=== PATIENT | male | born 1965 | race Caucasian/White ===

== ENCOUNTER 2019-05-12 17:43 | Emergency (ER) | payer BC, OTHER ==
[~2019-05-12] VITALS: Ht 180.4 cm; Wt 99.7 kg
[2019-05-12] MEDS ORDERED: NS IV 1000 ML 1,000 ML ONE (18:03)
[2019-05-12] MEDS ORDERED: NS IV 1000 ML 1,000 ML IV ONE (18:07)
[2019-05-12 18:19] LABS: INR 1.1 (0.8-1.4); PROTHROMBIN TIME PATIENT 14.1 SEC (12.2-14.7)
[2019-05-12 18:20] LABS: BASOPHILS % (AUTO) 0 % (0-10); EOSINOPHILS % (AUTO) 0 % (0-10); HEMATOCRIT 40 % (40-54); HEMOGLOBIN 13.3 G/DL (13.3-17.7); LYMPHOCYTES % (AUTO) 16 % (12-44); MEAN CORPUSCULAR HEMOGLOBIN 30 PG (25-34); MEAN CORPUSCULAR HGB CONC 33 G/DL (32-36); MEAN CORPUSCULAR VOLUME 90 FL (80-99); MEAN PLATELET VOLUME 10.4 FL (7.4-10.4); MONOCYTES # (AUTO) 0.4 X 10^3 (0.0-1.0); MONOCYTES % (AUTO) 7 % (0-12); NEUTROPHILS % (AUTO) 77 % (42-75); PLATELET COUNT 256 10^3/uL (130-400); RED CELL DISTRIBUTION WIDTH 13.1 % (10.0-14.5); WHITE BLOOD COUNT 6.5 10^3/uL (4.3-11.0)
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
[2019-05-12] MEDS ORDERED: ONDANSETRON 4 MG/2 ML (SDV) Z0FRAN ONE (18:33)
[2019-05-12 18:36] LABS: ALANINE AMINOTRANSFERASE 24 U/L (0-55); ALBUMIN 4.4 GM/DL (3.2-4.5); ALKALINE PHOSPHATASE 113 U/L (40-136); BILIRUBIN,TOTAL 0.4 MG/DL (0.1-1.0); BUN/CREATININE RATIO 18; CALCIUM 8.6 MG/DL (8.5-10.1); CARBON DIOXIDE 20 MMOL/L (21-32); CHLORIDE 106 MMOL/L (98-107); CREATININE SERUM 0.85 MG/DL (0.60-1.30); GFR ESTIMATED > 60; GLUCOSE 124 MG/DL (70-105); MAGNESIUM 1.9 MG/DL (1.6-2.4); POTASSIUM 4.2 MMOL/L (3.6-5.0); SODIUM 137 MMOL/L (135-145); TOTAL PROTEIN 7.3 GM/DL (6.4-8.2)
[2019-05-12] MEDS ORDERED: ONDANSETRON 4 MG/2 ML (SDV) Z0FRAN IVP ONE (18:45)
[2019-05-12] MEDS ORDERED: CYCLOBENZAPRINE 10 MG (FLEXERIL) TAB PO STA (19:20)
[2019-05-12 19:24] LABS: BILIRUBIN,URINE NEGATIVE (NEGATIVE); CLARITY,URINE CLEAR; COLOR,URINE YELLOW; GLUCOSE, URINE (UA) NEGATIVE (NEGATIVE); KETONES,URINE NEGATIVE (NEGATIVE); LEUKOCYTE ESTERASE ,URINE NEGATIVE (NEGATIVE); NITRITE,URINE NEGATIVE (NEGATIVE); PROTEIN,URINE NEGATIVE (NEGATIVE)
[2019-05-12 19:44] LABS: AMORPHOUS SEDIMENT,UR RARE AMOR URATES /LPF; BACTERIA,URINE TRACE /HPF
[2019-05-12 19:59] LABS: AMPHETAMINE SCREEN, URINE NEGATIVE (NEGATIVE); BARBITURATE SCREEN URINE NEGATIVE (NEGATIVE); BENZODIAZEPINES SCREEN URINE NEGATIVE (NEGATIVE); CANNABINOID SCREEN, URINE NEGATIVE (NEGATIVE); COCAINE SCREEN URINE NEGATIVE (NEGATIVE); METHADONE STAT NEGATIVE (NEGATIVE); METHAMPHETAMINE SCREEN URINE S NEGATIVE (NEGATIVE); OPIATE SCREEN URINE NEGATIVE (NEGATIVE); OXYCODONE STAT NEGATIVE (NEGATIVE); PROPOXYPHENE STAT NEGATIVE (NEGATIVE); TRICYCLIC ANTIDEPRESSANTS SCRE NEGATIVE (NEGATIVE)
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
[2019-05-12] MEDS ORDERED: PRD20T PO (21:36)
[2019-05-12] MEDS ORDERED: CYCL10TA9 PO (21:36)
[2019-05-12 21:39] VITALS: BP 112/75
--- OUTSIDE RECORDS SUMMARY | 2019-05-15 09:31 | XMS REPORT ---
Author Author Bro REYES [facility] Address [address] [place] [address] Care Team Providers Care Mortgage Processing Manager Name Role Phone RAMA REYES Unavailable PROBLEMS Type Condition ICD9-CM Code OQG19-CN Code Onset Dates Condition S tatus SNOMED Code Problem Shortness of breath 786.05 Active 140558828 Problem Unspecified arthropathy, site unspecified 716.90 Active 417438936 Problem Smoking greater than 30 pack years F17.210 Active 00592286 Problem Peptic ulcer, site unspecifi ed, unspecified as acute or chronic, without hemorrhage or perforation K27.9 Active 61 46392 Problem Carpal tunnel syndrome 354.0 Active 44166848 Problem Nondependent tobacco use disorder 305.1 Active 239375935 Problem Epigastric abdominal pain 789.06 Acti ve 94105222 Problem Gastric reflux syndrome K21.9 Active 807349945 ALLERGIES Substance Reaction Event Type Date Status Penicillins rash Non Drug Allergy May, Active ENCOUNTERS Encounter Location Date Diagnosis [place] [id number] [place] [address], S [id number] May, Strep throat J02.0 [place] [id number] [place] [address], [place] [id number] May, [place] [id number] [place] [address], [place] [id number] May, Strep pharyngitis J02.0 and Influenza J1 1.[address], [place] [id number] Aug, Tick bites, initial encounter W57.XXXA ; Fatigue, unspecified type R53.83 and Weakness R53.1 [place] [id number] [place] [address], [place] S [id number] Apr, Follow-up examination Z09 ; Helicobacter pylori (H. pylori) A04.8 ; Tobacco use Z72.0 ; Tobacco abuse counseling Z71.6 and Recurrent left upper quadrant abdominal pain R10.12 [facility] [address], [place] [id number] 12 Mar, 2016 Helicobacter pylori [H. pylori] as the c ause of diseases classified elsewhere B96.81 ; Nausea R11.0 ; Gastric reflux syndrome K21.9 and Smoking greater than 30 pack years F17.210 [facility] [address] [id number] 13 Nov, 2015 Wheezing R06.2 and Bronchiti s J40 [facility] [address], [place] [id number] Aug, [facility] [address], [place] [id number] Aug, [facility] [address], [place] [id number] July, Wellness examination Z00.00 [facility] [address], [place] [id number] July, Gastric reflux K21.9 and Wellness examin ation Z00.00 [facility] [address], [place] [id number] July, [facility] [address], [place] [id number] July, RUQ abdominal pain 789.01 ; Helicobacter pylori (H. pylori) infection 041.86 and Dizziness 780.4 [facility] [address] [place] [id number] [place] [id number] Jun, [facility] [address] [id number] Jun, [facility] [address] [id number] Apr, [facility] [address], [place] [id number] Apr, [facility] [address] [id number] [place], [place] [id number] July, [facility] [address] [facility] [id number] [address] [place] [address] Jun, [facility] [address] [id number] [place], [place] [id number] Jun, [facility] [address] [id number] [place], [place] [id number] Apr, [facility] [address] [id number] [place], [place] [id number] Mar, [facility] [address] [id number] [place], [place] [id number] Mar, [facility] [address] [id number] [place], [place] [id number] Mar, [facility] [address] [id number] [place], [place] [id number] Mar, IMMUNIZATIONS No Known Immunizations SOCIAL HISTORY Never Assessed REASON FOR VISIT Saw Liang about a week ago, finished antibiotic, doesn't feel any better, still h as scratchy throat, bilateral ear pain, having dizzy spells. vicky Sosa PLAN OF CARE Activity Details Follow Up prn Reason: VITAL SIGNS Height 70 in 2018-05-25 Weight 205 lbs 2018-05-25 Temperature 98.9 degrees Fahrenheit 2018-05-25 Heart Rate 76 bpm 2018-05-25 Respiratory Rate 18 2018-05-25 BMI 29.41 kg/m2 2018-05-25 Blood pressure systolic 118 mmHg 2018-05-25 Blood pressure diastolic 74 mmHg 2018-05-25 MEDICATIONS Medication Instructions Dosage Frequency Start Date End Date Duration S tatus Cefdinir 300 MG Orally 2 times a day 1 capsule 12h May, 10 days Active Omeprazole 20 MG Orally Once a day 1 capsule 24h 30 day(s) Active Fish Oil 1000 MG Orally 2 times a day 1 capsule 12h Aug, Active ProAir HFA 108 (90 Base) MCG/ACT Inhalation every 4 hrs 2 puffs as needed 4h 13 Nov, 2015 7 days Active RESULTS Name Result Date Reference Range STREP A (IN HOUSE) STREP A positive Control + Lot # [id number] Exp date 02/23/2021 PROCEDURES Procedure Date Ordered Result Body Site STREP A ASSAY W/OPTIC May 25, 2018 INSTRUCTIONS MEDICATIONS ADMINISTERED No Known Medications MEDICAL (GENERAL) HISTORY Type Description Date Medical History cardiovascular disease--NH in 1999 Surgical History arthroscopy shoulder--Left Surgical History arthroscopic knee surgery--Left 1996
--- OUTSIDE RECORDS SUMMARY | 2019-05-15 09:31 | XMS REPORT ---
Author Author Bro GROVER [facility] Address [address] [place] [address] Care Team Providers Care Tailer In Name Role Phone JACINTO GROVER Unavailable PROBLEMS Type Condition ICD9-CM Code [id number] Code Onset Dates Condition S tatus SNOMED Code Problem Shortness of breath 786.05 Active 090376114 Problem Unspecified arthropathy, site unspecified 716.90 Active 014548951 Problem Smoking greater than 30 pack years F17.210 Active 59801737 Problem Peptic ulcer, site unspecifi ed, unspecified as acute or chronic, without hemorrhage or perforation K27.9 Active 61 12574 Problem Carpal tunnel syndrome 354.0 Active 41337609 Problem Nondependent tobacco use disorder 305.1 Active 860752433 Problem Epigastric abdominal pain 789.06 Acti ve 46729616 Problem Gastric reflux syndrome K21.9 Active 467042775 ALLERGIES Substance Reaction Event Type Date Status Penicillins rash Non Drug Allergy May, Active ENCOUNTERS Encounter Location Date Diagnosis [id number] [place] [address], S [id number] May, Strep throat J02.0 [id number] [place] [address], S [id number] May, [id number] [place] [address] S [id number] May, Strep pharyngitis J02.0 and Influenza J1 1.1 [id number] [place] [address], S [id number] Aug, Tick bites, initial encounter W57.XXXA ; Fatigue, unspecified type R53.83 and Weakness R53.1 [id number] [place] [address], S [id number] Apr, Follow-up examination Z09 ; Helicobacter pylori (H. pylori) A04.8 ; Tobacco use Z72.0 ; Tobacco abuse counseling Z71.6 and Recurrent left upper quadrant abdominal pain R10.12 [facility] [id number] [place] [address], [place] [id number] 12 Mar, 2016 Helicobacter pylori [H. pylori] as the c ause of diseases classified elsewhere B96.81 ; Nausea R11.0 ; Gastric reflux syndrome K21.9 and Smoking greater than 30 pack years F17.210 [facility] WALK IN [facility] [address] [address] Nov, Wheezing R06.2 and Bronchiti s J40 [facility] [address], [place] [id number] Aug, [facility] [address], [place] [id number] Aug, [facility] [address], [place] [id number] July, Wellness examination Z00.00 [facility] [address], [place] [id number] July, Gastric reflux K21.9 and Wellness examin ation Z00.00 [facility] [address], [place] [id number] July, [facility] [address], [place] [id number] July, RUQ abdominal pain 789.01 ; Helicobacter pylori (H. pylori) infection 041.86 and Dizziness 780.4 [facility] [address] [address] Jun, [facility] [address] [address] Jun, [facility] [address] [address] Apr, [facility] [address], [place] [id number] Apr, [facility] [address] [place], [place] [id number] July, [facility] [address] [facility] [id number] [address] [place] [address] Jun, [facility] [place] [address] [id number] [place] [id number] Jun, [facility] [place] [address] [id number] [place] [id number] Apr, [facility] [place] [address] [id number] [place] [id number] Mar, [facility] [address] [id number] [place], [place] [id number] Mar, [facility] [address] [id number] [place] [id number] Mar, [facility] [address] [id number] [place], [place] [id number] Mar, IMMUNIZATIONS No Known Immunizations SOCIAL HISTORY Never Assessed REASON FOR VISIT cough, headache, body aches, fever (101) x 3 days. vicky Sosa PLAN OF CARE Activity Details Follow Up prn Reason: VITAL SIGNS Height 70 in 2018-05-16 Weight 207 lbs 2018-05-16 Temperature 97.2 degrees Fahrenheit 2018-05-16 Heart Rate 72 bpm 2018-05-16 Respiratory Rate 20 2018-05-16 BMI 29.70 kg/m2 2018-05-16 Blood pressure systolic 120 mmHg 2018-05-16 Blood pressure diastolic 64 mmHg 2018-05-16 MEDICATIONS Medication Instructions Dosage Frequency Start Date End Date Duration S tatus ProAir HFA 108 (90 Base) MCG/ACT Inhalation every 4 hrs 2 puffs as needed 4h Nov, 7 days Active Fish Oil 1000 MG Orally 2 times a day 1 capsule 12h Aug, Active Omeprazole 20 MG Orally Once a day 1 capsule 24h 30 day(s) Active Azithromycin 250 MG Orally Once a day 2 tablets on the fi rst day, then 1 tablet daily for 4 days 24h May, 5 day(s) Active RESULTS Name Result Date Reference Range STREP A (IN HOUSE) 2018-05-16 STREP A POSITIVE Control + Lot # [id number] Exp date 02/23 PROCEDURES Procedure Date Ordered Result Body Site STREP A ASSAY W/OPTIC May 16, 2018 INSTRUCTIONS MEDICATIONS ADMINISTERED No Known Medications MEDICAL (GENERAL) HISTORY Type Description Date Medical History cardiovascular disease--[place] in 1999 Surgical History arthroscopy shoulder--Left Surgical History arthroscopic knee surgery--Left 1996
--- OUTSIDE RECORDS SUMMARY | 2019-05-15 09:31 | XMS REPORT ---
Author Author Bro GROVER Organization [facility] Address [address] [place] [address] Care Team Providers Care Pig Iron Loader Name Role Phone JACINTO GROVER Unavailable PROBLEMS Type Condition ICD9-CM Code [id number] Code Onset Dates Condition S tatus SNOMED Code Problem Shortness of breath 786.05 Active 141608195 Problem Unspecified arthropathy, site unspecified 716.90 Active 853523614 Problem Smoking greater than 30 pack years F17.210 Active 71374611 Problem Peptic ulcer, site unspecifi ed, unspecified as acute or chronic, without hemorrhage or perforation K27.9 Active 61 85801 Problem Carpal tunnel syndrome 354.0 Active 50068691 Problem Nondependent tobacco use disorder 305.1 Active 081679103 Problem Epigastric abdominal pain 789.06 Acti ve 48477666 Problem Gastric reflux syndrome K21.9 Active 990251826 ALLERGIES No Information ENCOUNTERS Encounter Location Date Diagnosis [facility] [id number] [place] [address], S [id number] May, Strep throat J02.0 [id number] [place] [address], S [id number] May, [id number] [place] [address], S [id number] May, Strep pharyngitis J02.0 and Influenza J1 1.1 [id number] [place] [address], S [id number] Aug, Tick bites, initial encounter W57.XXXA ; Fatigue, unspecified type R53.83 and Weakness R53.1 [facility] [id number] [place] [address], S [id number] Apr, Follow-up examination Z09 ; Helicobacter pylori (H. pylori) A04.8 ; Tobacco use Z72.0 ; Tobacco abuse counseling Z71.6 and Recurrent left upper quadrant abdominal pain R10.12 [facility] [id number] [place] [address], [place] S [id number] Mar, Helicobacter pylori [H. pylori] as the c ause of diseases classified elsewhere B96.81 ; Nausea R11.0 ; Gastric reflux syndrome K21.9 and Smoking greater than 30 pack years F17.210 [facility] WALK IN [facility] [id number] [place] [address] Nov, Wheezing R06.2 and Bronchiti s J40 [facility] [id number] [place] [address], [place] S [id number] Aug, [facility] [address], [place] [id number] Aug, [facility] [id number] [place] [address], [place] S [id number] July, Wellness examination Z00.00 [facility] [address], [place] [id number] July, Gastric reflux K21.9 and Wellness examin ation Z00.00 [facility] [id number] [place] [address], [place] [id number] July, [facility] [address], [place] [id number] July, RUQ abdominal pain 789.01 ; Helicobacter pylori (H. pylori) infection 041.86 and Dizziness 780.4 [facility] [id number] [place] [phone] Jun, [facility] [id number] [place] [address] Jun, [facility] [address] [address] Apr, [facility] [id number] [place] [address], [place] S [id number] Apr, [facility] [id number] [place] [address], [place] S [id number] July, [facility] [address] [id number] [address] [place] [address] Jun, [facility] [address] [id number] [place] [id number] Jun, [facility] [address] [id number] [place] [id number] Apr, [facility] [address] [id number] [place], [place] [id number] Mar, [facility] [address] [id number] [place] [id number] Mar, [facility] [address] [id number] [place] [id number] Mar, [facility] [address] [id number] [place] [id number] Mar, IMMUNIZATIONS No Known Immunizations SOCIAL HISTORY Never Assessed REASON FOR VISIT PLAN OF CARE VITAL SIGNS Height 70 in 2014-05-01 Weight 200 lbs 2014-05-01 Temperature 97 degrees Fahrenheit 2014-05-01 Heart Rate 70 bpm 2014-05-01 Respiratory Rate 24 2014-05-01 Blood pressure systolic 150 mmHg 2014-05-01 Blood pressure diastolic 90 mmHg 2014-05-01 MEDICATIONS No Known Medications RESULTS No Results PROCEDURES Procedure Date Ordered Result Body Site MEASURE BLOOD OXYGEN LEVEL May 01, 2014 INFLUENZA ASSAY W/OPTIC May 01, 2014 INSTRUCTIONS MEDICATIONS ADMINISTERED No Known Medications MEDICAL (GENERAL) HISTORY Type Description Date Medical History cardiovascular disease--[place] in 1999 Surgical History arthroscopy shoulder--Left Surgical History arthroscopic knee surgery--Left 1996
--- OUTSIDE RECORDS SUMMARY | 2019-05-15 09:32 | XMS REPORT ---
Author Author Bro Omalley Doctor Organization [facility] Address Unknown Phone Unavailable Care Team Providers Care Presales Consultant Name Role Phone Migration, Doctor Unavailable Unavailable PROBLEMS Type Condition ICD9-CM Code [id number] Code Onset Dates Condition S tatus SNOMED Code Problem Shortness of breath 786.05 Active 139047112 Problem Unspecified arthropathy, site unspecified 716.90 Active 738753232 Problem Smoking greater than 30 pack years F17.210 Active 46447711 Problem Peptic ulcer, site unspecifi ed, unspecified as acute or chronic, without hemorrhage or perforation K27.9 Active 61 28889 Problem Carpal tunnel syndrome 354.0 Active 21037496 Problem Nondependent tobacco use disorder 305.1 Active 360142881 Problem Epigastric abdominal pain 789.06 Acti ve 50771853 Problem Gastric reflux syndrome K21.9 Active 285585838 ALLERGIES Substance Reaction Event Type Date Status Penicillins Unknown Non Drug Allergy Jun, Active ENCOUNTERS Encounter Location Date Diagnosis [address] [place] [address], S [id number] May, Strep throat J02.0 [address] [place] [address], S [id number] May, [id number] [place] [address], S [id number] May, Strep pharyngitis J02.0 and Influenza J1 1.1 [facility] [address] [place] [address], [place] [id number] Aug, Tick bites, initial encounter W57.XXXA ; Fatigue, unspecified type R53.83 and Weakness R53.1 [facility] [address] [id number] Apr, Follow-up examination Z09 ; Helicobacter pylori (H. pylori) A04.8 ; Tobacco use Z72.0 ; Tobacco abuse counseling Z71.6 and Recurrent left upper quadrant abdominal pain R10.12 [facility] [id number] [place] [address], [place] S [id number] Mar, Helicobacter pylori [H. pylori] as the c ause of diseases classified elsewhere B96.81 ; Nausea R11.0 ; Gastric reflux syndrome K21.9 and Smoking greater than 30 pack years F17.210 [facility] WALK IN [facility] [address] [facility] [id number] [address] [place] [address] Nov, Wheezing R06.2 and Bronchiti s J40 [facility] [id number] [place] [address], [place] S [id number] Aug, [facility] [address], [place] [id number] Aug, [facility] [id number] [place] [address], [place] S [id number] July, Wellness examination Z00.00 [facility] [address], [place] [id number] July, Gastric reflux K21.9 and Wellness examin ation Z00.00 [facility] [id number] [place] [address], [place] S [id number] July, [facility] [address], [place] [id number] July, RUQ abdominal pain 789.01 ; Helicobacter pylori (H. pylori) infection 041.[address] [facility] [address] [phone] Jun, [facility] [address] [id number] [address] [place] [phone] Jun, [facility] [address] [id number] [place] [address] Apr, [facility] [id number] [place] [address], [place] S [id number] Apr, [facility] [id number] [place] [address], [place] S [id number] July, [facility] [address] [facility] [id number] [address] [place] [address] Jun, [facility] [address] [id number] [place] [id number] Jun, [facility] [address] [id number] [place], [place] [id number] Apr, [facility] [address] [id number] [place], [place] [id number] Mar, [facility] [address] [id number] [place], [place] [id number] Mar, [facility] [address] [id number] [place], [place] [id number] Mar, [facility] [address] [id number] [place], [place] [id number] Mar, IMMUNIZATIONS No Known Immunizations SOCIAL HISTORY Never Assessed REASON FOR VISIT EMR-[facility] PLAN OF CARE VITAL SIGNS MEDICATIONS Medication Instructions Dosage Frequency Start Date End Date Duration S tatus Clindamycin HCl 300 mg 1 capsule by Oral route 3 times per day for 5 day(s) Mar, Active Albuterol Sulfate 90 mcg/actuation inhal e 1 puff by Inhalation route as needed every 4-6 hours PRN SOB, wheezing Apr, Active Azithromycin 250 mg bryanna 2 Tablet by Oral route on day 1 then take 1 daily for 4 days Apr, Active Tamiflu 75 mg 1 capsule by Oral ro [place] 2 times per day for 5 day(s) Treatment Dosing Apr, Active Ranitidine HCl 150 mg take 1 tablet (150 mg) by oral r oute 4 times per day Apr, Active Benzonatate 100 mg 1 capsule 3 times per day PRN Apr, Active RESULTS No Results PROCEDURES No Known procedures INSTRUCTIONS MEDICATIONS ADMINISTERED No Known Medications MEDICAL (GENERAL) HISTORY Type Description Date Medical History cardiovascular disease--[place] in 1999 Surgical History arthroscopy shoulder--Left Surgical History arthroscopic knee surgery--Left 1996
--- OUTSIDE RECORDS SUMMARY | 2019-05-15 09:32 | XMS REPORT ---
Author Author Bro MCDONALD Y Organization [facility] Address [address] [place] [address] Care Team Providers Care Horse Exerciser Name Role Phone SWAN DEANDRE DAVID Unavailable PROBLEMS Type Condition ICD9-CM Code GOB31-BC Code Onset Dates Condition S tatus SNOMED Code Problem Unspecified arthropathy, site unspecified 716.90 Active 200732530 Problem Shortness of breath 786.05 Active 315532703 Problem Peptic ulcer, site unspecifi ed, unspecified as acute or chronic, without hemorrhage or perforation K27.9 Active 61 05968 Problem Smoking greater than 30 pack years F17.210 Active 89554285 Problem Nondependent tobacco use disorder 305.1 Active 414225073 Problem Carpal tunnel syndrome 354.0 Active 05148678 Problem Gastric reflux syndrome K21.9 Active 529722237 Problem Epigastric abdominal pain 789.06 Acti ve 89000853 ALLERGIES Substance Reaction Event Type Date Status Penicillins rash Non Drug Allergy Apr, Active SOCIAL HISTORY No smoking Hx information available PLAN OF CARE Activity Details Follow Up 1 week Reason: VITAL SIGNS Height 70 in 2016-04-07 Weight 190.0 lbs 2016-04-07 Temperature 97 degrees Fahrenheit 2016-04-07 Heart Rate 80 bpm 2016-04-07 Respiratory Rate 16 2016-04-07 BMI 27.26 kg/m2 2016-04-07 Blood pressure systolic 126 mmHg 2016-04-07 Blood pressure diastolic 70 mmHg 2016-04-07 MEDICATIONS Medication Instructions Dosage Frequency Start Date End Date Duration S tatus Wellbutrin XL 150 MG Orally Once a day for 7 days , thenSTOP SMOKING and start taking twice a day. 1 tablet in the morning Apr, 3 0 day(s) Active Fish Oil 1000 MG Orally 2 times a day 1 capsule 12h Aug, Active Ranitidine HCl 150 MG Orally 3 times a day 1 tablet at bedtime 8h Active ProAir HFA 108 (90 Base) MCG/ACT Inhalation every 4 hrs 2 puffs as needed 4h 13 Nov, 2015 7 days Active RESULTS Name Result Date Reference Range Ultrasound : Abdominal, COMPLETE 2016-04-25 PROCEDURES Procedure Date Ordered Related Diagnosis Body Site Office Visit, Est Pt., Level 3 Apr 07, 2016 IMMUNIZATIONS No Known Immunizations
--- OUTSIDE RECORDS SUMMARY | 2019-05-15 09:32 | XMS REPORT ---
Author Author Bro MCDONALD Y Organization [facility] Address [address] [place] [address] Care Team Providers Care Oncology Coordinator Name Role Phone SOSA HENSONMICHAELDAVID Unavailable PROBLEMS Type Condition ICD9-CM Code DOX87-CL Code Onset Dates Condition S tatus SNOMED Code Problem Unspecified arthropathy, site unspecified 716.90 Active 916021768 Problem Shortness of breath 786.05 Active 820080582 Problem Peptic ulcer, site unspecifi ed, unspecified as acute or chronic, without hemorrhage or perforation K27.9 Active 61 30176 Problem Smoking greater than 30 pack years F17.210 Active 64887426 Problem Nondependent tobacco use disorder 305.1 Active 610394195 Problem Carpal tunnel syndrome 354.0 Active 46587819 Problem Gastric reflux syndrome K21.9 Active 147251880 Problem Epigastric abdominal pain 789.06 Acti ve 83552047 ALLERGIES Substance Reaction Event Type Date Status Penicillins rash Non Drug Allergy Aug, Active ENCOUNTERS Encounter Location Date Diagnosis [address] [id number] Aug, Tick bites, initial encounter W57.XXXA ; Fatigue, unspecified type R53.83 and Weakness R53.1 [address] S [id number] Apr, Follow-up examination Z09 ; Helicobacter pylori (H. pylori) A04.8 ; Tobacco use Z72.0 ; Tobacco abuse counseling Z71.6 and Recurrent left upper quadrant abdominal pain R10.12 [address] S [id number] Mar, Helicobacter pylori [H. pylori] as the c ause of diseases classified elsewhere B96.81 ; Nausea R11.0 ; Gastric reflux syndrome K21.9 and Smoking greater than 30 pack years F17.210 [facility] [address] [facility] [id number] [address] [place] [address] Nov, Wheezing R06.2 and Bronchiti s J40 [facility] [address] [id number] [place] [id number] Aug, [facility] [address] [id number] [place], [place] [id number] Aug, [facility] [address] [id number] [place], [place] [id number] July, Wellness examination Z00.00 [facility] [id number] [place] [address], [place] S [id number] July, Gastric reflux K21.9 and Wellness examin ation Z00.00 [facility] [id number] [place] [address], [place] S [id number] July, [facility] [id number] [place] [address], [place] S [id number] July, RUQ abdominal pain 789.01 ; Helicobacter pylori (H. pylori) infection 041.86 and Dizziness 780.4 [facility] [address] [id number] [address] [place] [phone] Jun, [facility] [address] [id number] [address] [place] [phone] Jun, [facility] [address] [id number] [address] [place] [phone] Apr, [facility] [id number] [place] [address], [place] S [id number] Apr, [facility] [id number] [place] [address], [place] S [id number] July, [facility] [address] [id number] [address] [place] [phone] Jun, [facility] [address] [facility] [id number] [place], [place] [id number] Jun, [facility] [address], [place] [id number] Apr, [facility] [address] [id number] [place] S [id number] Mar, [facility] [address] [id number] [place] S [id number] Mar, [facility] [address] [id number] [place] S [id number] Mar, [facility] [address] [id number] Cony [place] S [id number] Mar, IMMUNIZATIONS No Known Immunizations SOCIAL HISTORY Never Assessed REASON FOR VISIT pulled about 8 ticks offf of him about a week ago. Pt c/o dizziness, fatigu e, body aches . Tanner KHALIL PLAN OF CARE Activity Details Follow Up 4 Weeks Reason: VITAL SIGNS Height 70 in 2016-09-02 Weight 184.0 lbs 2016-09-02 Temperature 98.4 degrees Fahrenheit 2016-09-02 Heart Rate 82 bpm 2016-09-02 Respiratory Rate 16 2016-09-02 BMI 26.40 kg/m2 2016-09-02 Blood pressure systolic 120 mmHg 2016-09-02 Blood pressure diastolic 68 mmHg 2016-09-02 MEDICATIONS Medication Instructions Dosage Frequency Start Date End Date Duration S wilian Doxycycline Hyclate 100 mg Orally every 12 hrs 1 tablet 12h Aug, Sep, 30 days Active Ranitidine HCl 150 MG Orally 3 times a day 1 tablet at bedtime 8h Active RESULTS No Results PROCEDURES No Known procedures INSTRUCTIONS MEDICATIONS ADMINISTERED No Known Medications MEDICAL (GENERAL) HISTORY Type Description Date Medical History cardiovascular disease--[place] in 1999 Surgical History arthroscopy shoulder--Left Surgical History arthroscopic knee surgery--Left 1996
--- OUTSIDE RECORDS SUMMARY | 2019-05-15 09:32 | XMS REPORT ---
Author Author Bro MCDONALD Y Organization [facility] Address [address] [place] [address] Care Team Providers Care Wafer Polishing Worker Name Role Phone SWAN DEANDRE DAVID Unavailable PROBLEMS Type Condition ICD9-CM Code [id number] Code Onset Dates Condition S tatus SNOMED Code Problem Unspecified arthropathy, site unspecified 716.90 Active 483406355 Problem Shortness of breath 786.05 Active 598002833 Problem Peptic ulcer, site unspecifi ed, unspecified as acute or chronic, without hemorrhage or perforation K27.9 Active 61 99856 Problem Smoking greater than 30 pack years F17.210 Active 28713068 Problem Nondependent tobacco use disorder 305.1 Active 227169179 Problem Carpal tunnel syndrome 354.0 Active 51111997 Problem Gastric reflux syndrome K21.9 Active 644182610 Problem Epigastric abdominal pain 789.06 Acti ve 91194344 ALLERGIES Substance Reaction Event Type Date Status Penicillins rash Non Drug Allergy Mar, Active SOCIAL HISTORY No smoking Hx information available PLAN OF CARE Activity Details Follow Up 3 Weeks Reason: VITAL SIGNS Height 70 in 2016-03-17 Weight 194.6 lbs 2016-03-17 Temperature 97.0 degrees Fahrenheit 2016-03-17 Heart Rate 72 bpm 2016-03-17 Respiratory Rate 18 2016-03-17 BMI 27.92 kg/m2 2016-03-17 Blood pressure systolic 128 mmHg 2016-03-17 Blood pressure diastolic 78 mmHg 2016-03-17 MEDICATIONS Medication Instructions Dosage Frequency Start Date End Date Duration S tatus Fish Oil 1000 MG Orally 2 times a day 1 capsule 12h Aug, Active Cipro 500 MG Orally Twice a day 1 tablet 12h Mar, Ja n, 2016 10 day(s) Active Ranitidine HCl 150 MG Orally 3 times a day 1 tablet at bedtime 8h Active Flagyl 500 MG Orally every 8 hrs 1 tablet 8h 12 Pavan, 2017 22 J an, 2017 10 day(s) Active ProAir HFA 108 (90 Base) MCG/ACT Inhalation every 4 hrs 2 puffs as needed 4h 13 Nov, 2015 7 days Active RESULTS No Results PROCEDURES Procedure Date Ordered Related Diagnosis Body Site Office Visit, Est Pt., Level 3 Mar 17, 2016 IMMUNIZATIONS No Known Immunizations
--- OUTSIDE RECORDS SUMMARY | 2019-05-15 09:32 | XMS REPORT ---
Author Author Bro SMITH Organization [facility] Address [address] [place] [address] Care Team Providers Care Crossing Tender Name Role Phone SARAH GLORIA Unavailable PROBLEMS Type Condition ICD9-CM Code EXP07-GV Code Onset Dates Condition S tatus SNOMED Code Assessment Wheezing R06.2 Nov, Active 172372 04 Assessment Bronchitis J40 Nov, Active 11794 004 Problem Gastric reflux K21.9 Active 03045 7003 Problem Epigastric abdominal pain 789.06 Acti ve 31928007 Problem Shortness of breath 786.05 Active 310343905 Problem Unspecified arthropathy, site unspecified 716.90 Active 204039115 Problem Carpal tunnel syndrome 354.0 Active 42564820 Problem Nondependent tobacco use disorder 305.1 Active 576318585 ALLERGIES Substance Reaction Event Type Date Status Penicillins rash Non Drug Allergy Nov, Active SOCIAL HISTORY No smoking Hx information available PLAN OF CARE VITAL SIGNS Height 70 in 2015-11-17 Weight 186.6 lbs 2015-11-17 Heart Rate 76 bpm 2015-11-17 Respiratory Rate 22 2015-11-17 Oximetry after breathing tx:98 % 2015-11-17 BMI 26.77 kg/m2 2015-11-17 Blood pressure systolic 108 mmHg 2015-11-17 Blood pressure diastolic 74 mmHg 2015-11-17 MEDICATIONS Medication Instructions Dosage Frequency Start Date End Date Duration S tatus Fish Oil 1000 MG Orally 2 times a day 1 capsule 12h Aug, Active Omeprazole 20 mg Orally twice a day 1 capsules 12h July, Active ProAir HFA 108 (90 Base) MCG/ACT Inhalation every 4 hrs 2 puffs as needed 4h Nov, 7 days Active Azithromycin 250 MG Orally Once a day 2 tablets on the fi rst day, then 1 tablet daily for 4 days 24h Nov, Nov, 5 day(s) Active RESULTS No Results PROCEDURES Procedure Date Ordered Related Diagnosis Body Site ALBUTEROL UNIT DOSE FORM INHALED 2015-11-17 N/A MEASURE BLOOD OXYGEN LEVEL Nov 17, 2015 Office Visit, Est Pt., Level 3 Nov 17, 2015 ALBUTEROL INHAL UNIT DOSE 1 MG Nov 17, 2015 IMMUNIZATIONS No Known Immunizations
--- OUTSIDE RECORDS SUMMARY | 2019-05-15 09:32 | XMS REPORT ---
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 Name Role Phone Migration, Doctor Unavailable Unavailable PROBLEMS Type Condition ICD9-CM Code HXM31-XA Code Onset Dates Condition S tatus SNOMED Code Problem Shortness of breath 786.05 Active 832533866 Problem Unspecified arthropathy, site unspecified 716.90 Active 827795806 Problem Smoking greater than 30 pack years F17.210 Active 42458920 Problem Peptic ulcer, site unspecifi ed, unspecified as acute or chronic, without hemorrhage or perforation K27.9 Active 61 80891 Problem Carpal tunnel syndrome 354.0 Active 58110893 Problem Nondependent tobacco use disorder 305.1 Active 160595821 Problem Epigastric abdominal pain 789.06 Acti ve 88928518 Problem Gastric reflux syndrome K21.9 Active 024741099 ALLERGIES No Information ENCOUNTERS Encounter Location Date Diagnosis [place] [id number] [place] [address], S [id number] May, Strep throat J02.[address] [place] [id number] [place] [address], S [id number] May, [place] [id number] [place] [address], S [id number] May, Strep pharyngitis J02.0 and Influenza J1 1.[address] [place] [id number] [place] [address], S [id number] Aug, Tick bites, initial encounter W57.XXXA ; Fatigue, unspecified type R53.83 and Weakness R53.[address] [place] [id number] [place] [address], S [id number] 02 Apr, 2016 Follow-up examination Z09 ; Helicobacter pylori (H. pylori) A04.8 ; Tobacco use Z72.0 ; Tobacco abuse counseling Z71.6 and Recurrent left upper quadrant abdominal pain R10.12 [place] [id number] [place] [address], [place] S [id number] Mar, Helicobacter pylori [H. pylori] as the c ause of diseases classified elsewhere B96.81 ; Nausea R11.0 ; Gastric reflux syndrome K21.9 and Smoking greater than 30 pack years F17.210 [facility] [id number] [place] [phone] Nov, Wheezing R06.2 and Bronchiti s J40 [facility] [id number] [place] [address], [place] S [id number] Aug, [facility] [id number] [place] [address], [place] S [id number] Aug, [facility] [address], [place] [id number] July, Wellness examination Z00.00 [facility] [address], [place] [id number] July, Gastric reflux K21.9 and Wellness examin ation Z00.00 [facility] [id number] [place] [address], [place] S [id number] July, [facility] [id number] [place] [address], [place] S [id number] July, RUQ abdominal pain 789.01 ; Helicobacter pylori (H. pylori) infection 041.86 and Dizziness 780.4 [facility] [address] [id number] Jun, [facility] [id number] [place] [phone] Jun, [facility] [id number] [place] [phone] Apr, [facility] [id number] [place] [address], [place] S [id number] Apr, [facility] [id number] [place] [address], [place] S [id number] July, [facility] [address] [phone] Jun, [facility] [address] [id number] [place] [id number] Jun, [facility] [address] [id number] [place], [place] [id number] Apr, [facility] [address] [id number] [place], [place] [id number] Mar, [facility] [address] [facility] [id number] [place], [place] [id number] Mar, [facility] [address] [facility] [id number] [place], [place] [id number] Mar, [facility] [address] [facility] [id number] [place], S [id number] Mar, IMMUNIZATIONS No Known Immunizations SOCIAL HISTORY Never Assessed REASON FOR VISIT EMR-[facility] PLAN OF CARE VITAL SIGNS MEDICATIONS No Known Medications RESULTS No Results PROCEDURES No Known procedures INSTRUCTIONS MEDICATIONS ADMINISTERED No Known Medications MEDICAL (GENERAL) HISTORY Type Description Date Medical History cardiovascular disease--[place] in 1999 Surgical History arthroscopy shoulder--Left Surgical History arthroscopic knee surgery--Left 1996
== END 2019-05-12 21:45 | disposition home or self-care (01) ==
LOC: EDUNIT# 17:43 → ER 17:44
DX: R07.89 Other chest pain (principal); J20.9 Acute bronchitis, unspecified; I10 Essential (primary) hypertension; I25.2 Old myocardial infarction; R40.2142 Coma scale, eyes open, spontaneous, at arrival to emergency department; R40.2252 Coma scale, best verbal response, oriented, at arrival to emergency department; R40.2362 Coma scale, best motor response, obeys commands, at arrival to emergency department; Z95.5 Presence of coronary angioplasty implant and graft; Z88.0 Allergy status to penicillin; Z87.891 Personal history of nicotine dependence; Z87.09 Personal history of other diseases of the respiratory system; V47.5XXA Car driver injured in collision with fixed or stationary object in traffic accident, initial encounter; Y92.410 Unspecified street and highway as the place of occurrence of the external cause
CPT/HCPCS: 36415; 70450; 71045; 72125; 72170; 80053; 80306; 80320; 81000; 83735; 83874; 84484; 85025; 85610; 85730; 93005; 93041

== ENCOUNTER → 2019-06-25 | Outpatient (CLI) | payer SELFPAY ==
[~2019-06-25] MED LIST: CATHETER FLUSH 10 ML SYR IV PRN; CYCL10TA9 PO; HOLD METFORMIN - RECEIVED CONTRAST 20 ML VIAL IV SCH; IOHEXOL 350 MG/ML 100 ML (OMNIPAQUE 350) VIAL IV ONE; NS 100 ML (IVPB) BAG IV ONE; PRD20T PO
[2019-06-25 14:21] LABS: ABG BASE EXCESS 0.2 MMOL/L (-2.5-2.5); ABG OXYGEN SATURATION 96 % (94-100); ABG PCO2 42 MMHG (35-45); ABG PH 7.39 (7.37-7.43); ABG PO2 91 MMHG (79-93)
[2019-06-25 14:23] LABS: CREATININE SERUM 0.97 MG/DL (0.60-1.30); GFR ESTIMATED > 60
[2019-06-25 14:23] LABS: ALLENS TEST POSITIVE; PATIENT TEMP 36.7; VENTILATOR NO
[2019-06-25 14:24] LABS: BUN/CREATININE RATIO 13
--- NOTE | 2019-06-25 15:18 | Diagnostic Imaging Report ---
PROCEDURE: CT angiography Chest. TECHNIQUE: After intravenous administration of contrast, thin section axial CT angiography of the chest was performed. 3D MIP reconstructions were made. All CT scans use one or more of the following dose optimizing techniques: automated exposure control, MA and/or KvP adjustment based on a patient size and exam type, or iterative reconstruction. INDICATION: Dyspnea. COMPARISON: Chest radiograph of 05/12/2019. FINDINGS: Vasculature: No pulmonary emboli. No CT evidence of pulmonary hypertension or right ventricular strain. Thoracic aorta is normal in caliber. No aortic dissection or pseudoaneurysm. 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 Heart and mediastinum: Visualized thyroid is normal. No supraclavicular, axillary, or intra-thoracic lymphadenopathy. Mild cardiomegaly. No pericardial effusion. Coronary artery calcifications are present and greatest in the posterior descending and anterior descending arteries. Pleura: No pleural effusion or pneumothorax. Lungs and airway: No endoluminal lesion in the trachea or central bronchi. No pulmonary mass, nodule, or consolidation. Upper abdomen: Visualized aspects of the upper abdomen are normal. Musculoskeletal: No concerning osseous lesion. IMPRESSION: 1. No acute cardiopulmonary process. Specifically, no pulmonary emboli or acute aortic syndrome. 2. No pulmonary nodule. The abnormality seen on chest radiograph is due to summation shadow of the right first rib. Dictated by: Dictated on workstation # [id number]
== END ==
LOC: RAD 13:54
PROVIDERS: ATTEND Nurse Practitioner Family
DX: R91.8 Other nonspecific abnormal finding of lung field (principal); R04.2 Hemoptysis; R06.00 Dyspnea, unspecified; E66.9 Obesity, unspecified; J98.4 Other disorders of lung; F17.211 Nicotine dependence, cigarettes, in remission
CPT/HCPCS: 36415; 36600; 71275; 82565; 82805; 84520

== ENCOUNTER → 2019-10-21 | Outpatient (CLI) | payer MEDICAID, OTHER ==
[2019-10-21 08:57] LABS: BUN/CREATININE RATIO 21; GFR ESTIMATED > 60
--- NOTE | 2019-10-21 09:38 | Diagnostic Imaging Report ---
PROCEDURE: CT chest with contrast only. TECHNIQUE: Multiple contiguous axial images were obtained through the chest after administration of intravenous contrast. Auto Exposure Controls were utilized during the CT exam to meet ALARA standards for radiation dose reduction. INDICATION: Shortness of air with chest pressure, cough. Compared with chest CT 06/25/2019. FINDINGS: There is no acute infiltrate. Zones of subsegmental atelectasis and a small linear scar in the superior segment right lower lobe similar to the comparison. No effusion or pneumothorax. No suspicious mass or lymphadenopathy. There are coronary arterial atherosclerotic vascular calcifications. There is incidental aberrant course of the right subclavian artery passing retroesophageal. No thoracic aneurysm. No acute-appearing chest wall pathology. The visualized upper abdomen appeared nonacute. IMPRESSION: No acute-appearing abnormality or interval change. Dictated by: Dictated on workstation # [id number]
== END ==
LOC: RAD 08:30
PROVIDERS: ATTEND Nurse Practitioner Family
DX: J98.4 Other disorders of lung (principal); R04.2 Hemoptysis; R06.02 Shortness of breath; R07.89 Other chest pain; F17.211 Nicotine dependence, cigarettes, in remission
CPT/HCPCS: 36415; 71260; 82565; 84520

== ENCOUNTER → 2019-10-31 | Outpatient (CLI) | payer MEDICAID, OTHER ==
[~2019-10-31] MED LIST changes: -CATHETER FLUSH 10 ML SYR IV PRN; -HOLD METFORMIN - RECEIVED CONTRAST 20 ML VIAL IV SCH; -IOHEXOL 350 MG/ML 100 ML (OMNIPAQUE 350) VIAL IV ONE; -NS 100 ML (IVPB) BAG IV ONE
[2019-10-31] MEDS: RT-ALBUTEROL SULF 2.5 MG/3 ML PRE-MIX VIAL INH ONE (10:54)
== END ==
LOC: RT 09:45
PROVIDERS: ATTEND Nurse Practitioner Family
DX: J98.4 Other disorders of lung (principal); R06.00 Dyspnea, unspecified; E66.9 Obesity, unspecified; F17.211 Nicotine dependence, cigarettes, in remission
CPT/HCPCS: 94060; 94726; 94729

== ENCOUNTER → 2021-10-06 | Outpatient (CLI) | payer MEDICAID, MEDICARE ==
[~2021-10-06] MED LIST changes: +CYCL10TA25 PO; -CYCL10TA9 PO
== END ==
LOC: CARD 09:14
PROVIDERS: ATTEND Internal Medicine Cardiovascular Disease
DX: I25.118 Atherosclerotic heart disease of native coronary artery with other forms of angina pectoris (principal); I25.10 Atherosclerotic heart disease of native coronary artery without angina pectoris; I35.0 Nonrheumatic aortic (valve) stenosis
CPT/HCPCS: 93306

== ENCOUNTER → 2021-10-14 | Outpatient (CLI) | payer MEDICAID ==
[~2021-10-14] VITALS: Ht 180 cm; Wt 100.0 kg
[2021-10-14] MEDS: CATHETER FLUSH 10 ML SYR IVP PRN (07:23)
[2021-10-14 08:49] VITALS: BP 135/78
--- NOTE | 2021-10-15 13:08 | NUCLEAR STRESS TEST ---
TREADMILL NUCLEAR STRESS TEST Date of procedure: 10/14/2021. Primary care provider: JANA Ribeiro. Admitting physician: Boris Diaz Jr., MD. INDICATION: Coronary artery disease of [place] vessel with angina pectoris. BASELINE ELECTROCARDIOGRAM: Sinus rhythm, unremarkable tracing. STRESS TEST PROCEDURE: The patient was exercised for a total of 6 minutes and 50 seconds of the standard Aidan protocol achieving a maximum MET level of 7.1. The resting heart rate was 65 bpm and the peak heart rate was 145 bpm, which represents 86% of the maximum predicted heart rate. The resting blood pressure was 135/78 mmHg and the peak blood pressure was 182/88 mmHg. This represents a normal heart rate and a normal blood pressure response to exercise. The test was stopped due to target heart rate attained. There was no chest discomfort during the test. There were no arrhythmias during the test. There were no significant stress induced electrocardiogram changes. The patient exhibited good exercise capacity for age. NUCLEAR PROCEDURE: The patient was administered 10.9 mCi of intravenous technetium 99m Tetrofosmin at rest for the rest images. The patient was subsequently administered 31 mCi of intravenous technetium 99 M Tetrofosmin at peak stress for the stress images. Following an appropriate wait after each injection, imaging was obtained. The images were subsequently processed and reformatted in the usual views. Gated imaging was obtained. The image quality was adequate with a moderate degree of gastrointestinal attenuation artifact. CT attenuation correction was used as a adjunct to standard imaging. Both the corrected and uncorrected images were reviewed for interpretation. NUCLEAR RESULTS: There was a small, mild intensity, reversible apical defect with a small amount of inducible ischemia. There was normal left ventricular chamber size with an end-diastolic volume of 102 mL and an end-systolic volume of 35 mL. There was no evidence of transient ischemic dilatation. The TID ratio was 1.09. There was normal wall motion in all segments with a calculated ejection fraction of 65%. IMPRESSION: 1. Normal heart rate and blood pressure response to exercise. 2. There was no exercise-induced chest discomfort, arrhythmias, or tobias ctrocardiogram changes. 3. The patient exhibited good exercise capacity for age at 6 minutes and 50 seconds of the Aidan protocol. 4. There was a small, mild intensity, reversible apical defect with a small amount of inducible ischemia. 5. There was normal wall motion in all segments with a calculated ejection fraction of 65%. 6. This is an abnormal result although represents an overall low risk for possible future coronary ischemic events. Certain portions of this document may have been dictated utilizing voice recognition technology. Inherent to this technology, typographical and grammatical errors may exist. As much as I am diligent to identify and correct these mistakes, some errors may remain in the document. BORIS DIAZ JR, MD Oct 15, 2021 13:08
== END ==
LOC: CARD 08:00
PROVIDERS: ATTEND Internal Medicine Cardiovascular Disease
DX: I25.118 Atherosclerotic heart disease of native coronary artery with other forms of angina pectoris (principal)
CPT/HCPCS: 78452; 93017; A9502

== ENCOUNTER 2021-11-24 10:44 | Emergency (ER) | payer MEDICARE, MEDICAID ==
[~2021-11-24] VITALS: Ht 180 cm; Wt 100.0 kg
--- NOTE | 2021-11-24 11:11 | ED Chest Pain ---
General Chief Complaint: Chest Pain Stated Complaint: CHEST PAIN Nursing Triage Note: Pt reports CP since 0430 this morning. Pt has previous hx cardiac stents. Pt sent this morning from Dr. Diaz' office. Source: patient, family Exam Limitations: no limitations History of Present Illness Date Seen by Provider: Nov 24, 2021 Time Seen by Provider: 10:54 Initial Comments Patient is a 55-year-old male with a history of coronary artery disease who presents to the emergency department with a chief complaint of midsternal chest pain. Patient tells me that he woke up at about 430, 5:00 this morning with the pain. It radiates into his back. He feels short of breath at rest and with exertion. He has a history of "8 or 9" cardiac stents. His last one was placed in 2019. He quit smoking in 2018. He takes his Plavix daily. He denies nausea or diaphoresis. No recent illnesses, fevers, chills, productive cough. No swelling in his legs, recent travel. No black or bloody stools or other GI or complaints. He tells me he ran out of his nitro patch about a month ago. He subsequently had a visit to [facility] and was referred into Dr. Diaz. He went to the office this morning with chest pain and since he was having active chest pain they sent him here. His pain is currently at a "6". He is not nauseous bu t he is short of breath. Will address his chest pain with some sublingual nitro and then potentially Nitropaste. His EKG is reviewed and is unremarkable for any acute ST segment change. No ectopy. Vital signs are stable. Routine cardiac work-up initiated. Timing/Duration: 4-6 hours Severity/Quality: moderate ("6") Location: other (left chest) Radiation: back Activities at Onset: sleep Prior CP/Workup: cardiac cath, stress test ASA po PATTERN DRAFTER: No NTG SL PATTERN DRAFTER: No Associated Symptoms: shortness of breath Allergies and Home Medications Allergies Coded Allergies: Penicillins (Verified Allergy, Unknown, 05/12/19) Patient Home Medication List Home Medication List Reviewed: Yes Cyclobenzaprine HCl (Cyclobenzaprine HCl) 10 Mg Tablet, 10 MG PO Q8H PRN for SPASMS Prescribed by: REGINA HAHN on 05/12/19 6307 Nitroglycerin (Nitroglycerin 0.2mg/HR Patch) 0.2 Mg/Hour Patch.td24, 1 EACH TD DAILY Prescribed by: KASHMIR STODDARD on 11/24/21 1248 Review of Systems Review of Systems Constitutional: see HPI EENTM: No Symptoms Reported Respiratory: Shortness of Air, SOA With Exertion Cardiovascular: Chest Pain Gastrointestinal: No Symptoms Reported Genitourinary: No Symptoms Reported Musculoskeletal: no symptoms reported Skin: no symptoms reported Psychiatric/Neurological: Anxiety All Other Systems Reviewed Negative Unless Noted: Yes Past Nspvqgg-Sfacez-Rmalzp Hx Patient Social History Tobacco Use?: No Smoking Status: Former Smoker Substance use?: No Alcohol Use?: No Immunizations Up To Date Tetanus Booster (TDap): Unknown PED Vaccines UTD: Yes Second COVID19 Vaccination Wesley: 08/17/21 COVID19 Vaccine 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: sofia Seasonal Allergies Seasonal Allergies: No Past Medical History Surgery/Hospitalization HX: previous cardiac stents, acid reflux Surgeries: Yes Orthopedic Respiratory: Yes COPD Cardiac: Yes (stents) Heart Attack, Hypertension Neurological: No Genitourinary: No Gastrointestinal: No Musculoskeletal: No Endocrine: No HEENT: No Cancer: No Psychosocial: No Integumentary: No Family Medical History No Pertinent Family Hx Physical Exam Vital Signs Vital Signs - First Documented 11/24/21 10:55 Temp 36.4 Pulse 66 Resp 18 B/P (MAP) 155/96 (115) Pulse Ox 98 O2 Delivery Room Air Capillary Refill : Less Than 3 Seconds Height, Weight, BMI Height: '" Weight: lbs. oz. 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 Norm as Tested Skin: Normal Color, Warm/Dry Progress/Results/Core Measures Results/Orders Lab Results Laboratory Tests Test 11/24/21 11:00 Range/Units White Blood Count 5.4 4.3-11.0 10^3/uL Red Blood Count 4.59 4.30-5.52 10^6/uL Hemoglobin 12.4 L 13.3-17.7 g/dL Hematocrit 38 L 40-54 % Mean Corpuscular Volume 82 80-99 fL Mean Corpuscular Hemoglobin 27 25-34 pg Mean Corpuscular Hemoglobin Concent 33 32-36 g/dL Red Cell Distribution Width 14.3 10.0-14.5 % Platelet Count 235 130-400 10^3/uL Mean Platelet Volume 10.5 9.0-12.2 fL Immature Granulocyte % (Auto) 0 % Neutrophils (%) (Auto) 59 42-75 % Lymphocytes (%) (Auto) 25 12-44 % Monocytes (%) (Auto) 12 0-12 % Eosinophils (%) (Auto) 4 0-10 % Basophils (%) (Auto) 0 0-10 % Neutrophils # (Auto) 3.2 1.8-7.8 10^3/uL Lymphocytes # (Auto) 1.4 1.0-4.0 10^3/uL Monocytes # (Auto) 0.6 0.0-1.0 10^3/uL Eosinophils # (Auto) 0.2 0.0-0.3 10^3/uL Basophils # (Auto) 0.0 0.0-0.1 10^3/uL Immature Granulocyte # (Auto) 0.0 0.0-0.1 10^3/uL Prothrombin Time 13.2 12.2-14.7 SEC INR Comment 1.0 0.8-1.4 Activated Partial Thromboplast Time 34 24-35 SEC Sodium Level 142 135-145 MMOL/L Potassium Level 3.5 L 3.6-5.0 MMOL/L Chloride Level 106 98-107 MMOL/L Carbon Dioxide Level 24 21-32 MMOL/L Anion Gap 12 5-14 MMOL/L Blood Urea Nitrogen 20 H 7-18 MG/DL Creatinine 0.90 0.60-1.30 MG/DL Estimat Glomerular Filtration Rate 102 BUN/Creatinine Ratio 22 Glucose Level 139 H 70-105 MG/DL Calcium Level 9.0 8.5-10.1 MG/DL Corrected Calcium 8.8 8.5-10.1 MG/DL Magnesium Level 2.0 1.6-2.4 MG/DL Total Bilirubin 1.0 0.1-1.0 MG/DL Aspartate Amino Transf (AST/SGOT) 20 5-34 U/L Alanine Aminotransferase (ALT/SGPT) 24 0-55 U/L Alkaline Phosphatase 160 H 40-136 U/L Myoglobin 20.9 10.0-92.0 NG/ML Troponin I < 0.028 <0.028 NG/ML Total Protein 7.6 6.4-8.2 GM/DL Albumin 4.3 3.2-4.5 GM/DL My Orders Orders - KASHMIR STODDARD MD Ekg Tracing (11/24/21 10:53) Cbc With Automated Diff (11/24/21 11:05) Magnesium (11/24/21 11:05) Chest 1 View, Ap/Pa Only (11/24/21 11:05) Comprehensive Metabolic Panel (11/24/21 11:05) Myoglobin Serum (11/24/21 11:05) Protime With Inr (11/24/21 11:05) Partial Thromboplastin Time (11/24/21 11:05) O2 (11/24/21 11:05) Monitor-Rhythm Ecg Trace Only (11/24/21 11:05) Ed Iv/Invasive Line Start (11/24/21 11:05) Troponin I [place] (11/24/21 11:05) Nitroglycerin 0.4 Mg Btl 25's (Nitrostat (11/24/21 11:15) Medications Given in ED Vital Signs/I&O 11/24/21 11/24/21 10:55 12:58 Temp 36.4 Pulse 66 60 Resp 18 B/P (MAP) 155/96 (115) 111/79 Pulse Ox 98 97 O2 Delivery Room Air Room Air Blood Pressure Mean: 115 Progress Progress Note : Time: 12:44 Progress Note Patient reevaluated after nitro and cardiac work-up, he is comfortable, his pain is basically resolved he states he may have a "1" in the mid chest. His troponin 6 hours after the onset of his pain is undetectable. Chest x-ray is reassuring. Rest of his labs are normal. I discussed with him really prescribing his nitro patches at 0.2 mg he is comfortable with this. I have encouraged him to call Dr. Diaz office for a follow-up appointment. He is going to do this, all questions of been sought and answered. Patient is stable for discharge Initial ECG Impression Date: Nov 24, 2021 Initial ECG Impression Time: 11:01 Initial ECG Rate: 66 Initial ECG Intervals: Normal Initial ECG Impression: Normal Departure Impression Primary Impression: Angina pectoris Additional Impression: CAD (coronary artery disease) Qualified Codes: I25.118 - Atherosclerotic heart disease of [place] coronary artery with other forms of angina pectoris Disposition: HOME, SELF-CARE Condition: Improved Departure-Patient Inst. Decision time for Depature: 12:46 Referrals: [facility] (PCP) Primary Care Physician BORIS DIAZ JR, MD Patient Instructions: Chest Pain Add. Discharge Instructions: Continue your daily medications as prescribed. I have sent a new prescription for your nitro patches to your pharmacy in [place]. Please start these today. Please call Dr. Diaz office for a follow-up appointment in 1 week. If you have a return of chest pain especially with shortness of breath, nausea, sweating or any other emergent, concerning symptoms please come back to the emergency room for reevaluation. Scripts Nitroglycerin (Nitroglycerin 0.2mg/HR Patch) 0.2 Mg/Hour Patch.td24 1 EACH TD DAILY, #30 PATCH Prov: KASHMIR STODDARD MD 11/24/21 Copy Copies To 1: [facility] [facility] [place] Copies To 2: BORIS DIAZ JR, MD CORNELIUS, KATHRYN M MD Nov 24, 2021 11:11
[2021-11-24 11:12] LABS: BASOPHILS % (AUTO) 0 % (0-10); EOSINOPHILS # (AUTO) 0.2 10^3/uL (0.0-0.3); EOSINOPHILS % (AUTO) 4 % (0-10); HEMATOCRIT 38 % (40-54); HEMOGLOBIN 12.4 g/dL (13.3-17.7); LYMPHOCYTES # (AUTO) 1.4 10^3/uL (1.0-4.0); LYMPHOCYTES % (AUTO) 25 % (12-44); MEAN CORPUSCULAR HEMOGLOBIN 27 pg (25-34); MEAN CORPUSCULAR HGB CONC 33 g/dL (32-36); MEAN CORPUSCULAR VOLUME 82 fL (80-99); MEAN PLATELET VOLUME 10.5 fL (9.0-12.2); MONOCYTES # (AUTO) 0.6 10^3/uL (0.0-1.0); MONOCYTES % (AUTO) 12 % (0-12); NEUTROPHILS # (AUTO) 3.2 10^3/uL (1.8-7.8); NEUTROPHILS % (AUTO) 59 % (42-75); PLATELET COUNT 235 10^3/uL (130-400); WHITE BLOOD COUNT 5.4 10^3/uL (4.3-11.0)
[2021-11-24] MEDS ORDERED: NITROGLYCERIN 0.4 MG SL TABS BTL 25'S SL PRN (11:15)
[2021-11-24 11:21] LABS: PROTHROMBIN TIME PATIENT 13.2 SEC (12.2-14.7)
[2021-11-24 11:23] LABS: ALBUMIN 4.3 GM/DL (3.2-4.5)
[2021-11-24 11:24] LABS: POTASSIUM 3.5 MMOL/L (3.6-5.0)
[2021-11-24 11:26] LABS: TOTAL PROTEIN 7.6 GM/DL (6.4-8.2)
--- NOTE | 2021-11-24 11:29 | Diagnostic Imaging Report ---
CLINICAL INDICATION: Patient with chest pain. EXAM: Portable chest x-ray upright view. COMPARISON: Chest x-ray dated 05/12/2019. FINDINGS: Lungs/pleura: There is minimal discoid atelectasis in the left lung base. Otherwise, lungs are clear. There is no pneumothorax. There is no pleural effusion. Mediastinum: Unremarkable. Pulmonary vasculature: Unremarkable. Heart: Unremarkable. Bones/extrathoracic soft tissue: Unremarkable. IMPRESSION: There is minimal discoid atelectasis in the left lung base. There is no radiographic evidence of acute cardiopulmonary process. Dictated by: Dictated on workstation # [id number]
[2021-11-24 11:30] LABS: CREATININE SERUM 0.9 MG/DL (0.60-1.30)
[2021-11-24] MEDS ORDERED: NITR1PAT57 TD (12:48)
[2021-11-24 12:58] VITALS: BP 111/79
== END 2021-11-24 12:59 | disposition home or self-care (01) ==
LOC: EDUNIT# 10:44 → ER 10:47
DX: I25.10 Atherosclerotic heart disease of native coronary artery without angina pectoris (principal); I20.9 Angina pectoris, unspecified; Z95.5 Presence of coronary angioplasty implant and graft; Z87.891 Personal history of nicotine dependence; Z79.02 Long term (current) use of antithrombotics/antiplatelets
CPT/HCPCS: 36415; 71045; 80053; 83735; 83874; 84484; 85025; 85610; 85730; 93005; 93041

== ENCOUNTER → 2021-12-06 | Outpatient (CLI) | payer OTHER, MEDICAID ==
[~2021-12-06] MED LIST changes: +ASPI-1238 PO; +ATOR80TA76 PO; +BUSP10TA95 PO; +CARV12.53 PO; +CETI10TA17 PO; +CLOP75TA28 PO; +LISI2.5T13 PO; +MELO15TA39 PO; +MONT-40 PO; +NITR0.4T39 SL; +NITR1PAT57 TD; +NITR1PAT62 TD; +OMEP20CA18 PO; +RT-ALBUINH IH
[2021-12-06 10:17] LABS: BASOPHILS % (AUTO) 0 % (0-10); EOSINOPHILS # (AUTO) 0.2 10^3/uL (0.0-0.3); EOSINOPHILS % (AUTO) 4 % (0-10); HEMATOCRIT 39 % (40-54); HEMOGLOBIN 12.8 g/dL (13.3-17.7); LYMPHOCYTES # (AUTO) 1.3 10^3/uL (1.0-4.0); LYMPHOCYTES % (AUTO) 23 % (12-44); MEAN CORPUSCULAR HEMOGLOBIN 28 pg (25-34); MEAN CORPUSCULAR HGB CONC 33 g/dL (32-36); MEAN CORPUSCULAR VOLUME 84 fL (80-99); MEAN PLATELET VOLUME 10.6 fL (9.0-12.2); MONOCYTES # (AUTO) 0.6 10^3/uL (0.0-1.0); MONOCYTES % (AUTO) 11 % (0-12); NEUTROPHILS # (AUTO) 3.5 10^3/uL (1.8-7.8); NEUTROPHILS % (AUTO) 62 % (42-75); PLATELET COUNT 215 10^3/uL (130-400); WHITE BLOOD COUNT 5.6 10^3/uL (4.3-11.0)
[2021-12-06 10:36] LABS: CREATININE SERUM 0.84 MG/DL (0.60-1.30)
[2021-12-06 10:42] LABS: INR 1.1 (0.8-1.4); PROTHROMBIN TIME PATIENT 14.3 SEC (12.2-14.7)
== END ==
LOC: LAB 09:48
PROVIDERS: ATTEND Internal Medicine Cardiovascular Disease
DX: I25.118 Atherosclerotic heart disease of native coronary artery with other forms of angina pectoris (principal); I42.9 Cardiomyopathy, unspecified; I10 Essential (primary) hypertension; E78.2 Mixed hyperlipidemia; J44.9 Chronic obstructive pulmonary disease, unspecified; E66.9 Obesity, unspecified
CPT/HCPCS: 36415; 80048; 85025; 85610

== ENCOUNTER → 2021-12-08 | Outpatient (CLI) | payer OTHER, MEDICAID | LOC: LAB 08:47 | PROVIDERS: ATTEND Internal Medicine Cardiovascular Disease | DX: Z20.822 Contact with and (suspected) exposure to COVID-19 (principal) | CPT/HCPCS: 87636 ==

== ENCOUNTER 2021-12-09 10:00 | Day surgery (SDC) | payer MEDICARE, MEDICAID ==
[2021-12-09] VITALS (8 sets, daily range): BP systolic 102–148; BP diastolic 67–90
[~2021-12-09] VITALS: Ht 180.3 cm; Wt 99.8 kg
[~2021-12-09 10:00] MED LIST changes: +ASPIRIN 81 MG CHEW (CHILDREN'S ASA) PO ONE; +CATHETER FLUSH 10 ML SYR IV PRN; +HEParin (CATH LAB) 2,000 ML IV ONE; +LIDOCAINE 1% INJ 30 ML (XYLOCAINE) VIAL ONE; +NS IV 1000 ML 1,000 ML IV ONE; +NS IV 1000 ML 1,000 ML ONE
[2021-12-09] MEDS ORDERED: fentaNYL INJ 100 MCG/2 ML AMP ONE (11:01)
[2021-12-09] MEDS ORDERED: VERAPAMIL 5 MG/2 ML (CALAN) VIAL IV ONE (11:01)
[2021-12-09] MEDS ORDERED: MIDAZOLAM 5 MG/5 ML (VERSED) VIAL ONE (11:01)
[2021-12-09] MEDS ORDERED: NITRO DRIP 25000 MCG/D5W 250 ML IV ONE (11:01)
[2021-12-09] MEDS ORDERED: HEParin 1000 UNIT/ML (10ML VIAL) FOR BOLUS ONE (11:01)
--- NOTE | 2021-12-09 11:25 | Pre-Op Note & Conscious Sedat ---
Pre-Operative Progress Note Date of Available H&P: Dec 09, 2021 Date H&P Reviewed: Dec 09, 2021 Time H&P Reviewed: 11:24 History & Physical: H&P Reviewed, Patient Examed, No changes noted Changes from last HP No changes from above. Pre-Op Diagnosis: Coronary artery disease with angina pectoris and abnormal stress test Conscious Sedation Pre-Proced ASA Score 2 For ASA 3 and 4: Consider anesthesia and medical clearance. Also, for patients with a history of failed moderate sedation consider anesthesia. Airway Lungs Heart ASA score ASA 1: a normal healthy patient ASA 2: a patient with a mild systemic disease (mid diabetes, controlled hyp ertension, obesity ASA 3: a patient with a severe systemic disease that limits activity (angina, COPD, prior Myocardial infarction) ASA 4: a patient with an incapacitating disease that is a constant threat to life (CHF, renal failure) ASA 5: a moribund patient not expected to survive 24 hrs. (ruptured aneurysm) ASA 6: a declared brain- patient whose organs are being harvested. For emergent operations, add the letter E after the classification Mallampati Classification Grade 2 Sedation Plan Analgesia, Amnesia, Plan communicated to team members, Discussed options with patient/fam, Discussed risks with patient/fam The patient is an appropriate candidate to undergo the planned procedure, sed ation, and anesthesia. The patient immediately re-assessed prior to indication. Given the patient's current clinical status, he is considered vulnerable. He has no history of heart failure. BORIS KERR JR, MD Dec 09, 2021 11:25
--- NOTE | 2021-12-09 12:27 | Cardiac Cath Report ---
CARDIAC CATHETERIZATION DATE OF PROCEDURE: 12/09/2021 INDICATION: Coronary artery disease with angina and abnormal nuclear stress test. HISTORY: The patient is a 56 year old male with a known history of coronary artery disease with at least several previous coronary stents at an outside facility. I saw him in the office due to chest pain consistent with angina. I had him undergo a stress test in October 2021 that showed a mild apical ischemic defect. He has been treated with 2 antianginal medications but continues to have angina. As such, he is now referred for further evaluation with a cardiac catheterization. Given his current clinical status, he is considered vulnerable. He has no history of heart failure. PROCEDURES PERFORMED: 1. Left heart catheterization with hemodynamic measurements. 2. Diagnostic creek coronary angiography. 3. Attempted percutaneous coronary intervention of the first obtuse marginal branch. PROCEDURE DESCRIPTION: After informed consent and in the fasting state, left heart catheterization was performed through the right radial artery utilizing a 6 [place]ander system by percutaneous approach. Standard 5 [place] Donna catheters were utilized for the diagnostic portion of the procedure. A 6 [place] CLS 3.5 guide catheter was utilized for the attempted percutaneous coronary intervention. All catheters were exchanged over a guidewire. Following the procedure, a vascular band was applied to the radial artery access site and the sheath was removed with good hemostasis. RESULTS: HEMODYNAMICS: The aortic pressure was 118/77 mmHg. The left ventricular pressure was 126/0 mmHg with a left ventricular end-diastolic pressure of 6 mmHg. There was no significant pressure gradient upon pullback across the aortic valve. CORONARY ANGIOGRAPHY: Left main coronary artery: Free of significant disease. Left anterior descending coronary artery: There was a stent in the midsegment and another stent in the distal segment both of which were widely patent. There was a long 50% stenosis distal to the distal stent. The first large diagonal branch contained a long 70% stenosis proximally with NAVEED-3 flow. This was approximately a 2 mm vessel. Left circumflex coronary artery: Codominant and there appeared to be a moderate-sized first obtuse marginal branch which was totally occluded proximally with NAVEED 0 flow. No collaterals were seen to this branch. There was a 70% stenosis in the midportion of the left circumflex coronary artery just distal to this occluded obtuse marginal branch with NAVEED-3 flow. The left posterolateral branch versus a very distal obtuse marginal branch was free of significant disease. Ramus intermedius branch: There was a moderate sized ramus intermedius branch which contained a stent in the proximal segment which was widely patent. Right coronary artery: Codominant and there appeared to be a stent in the distal right coronary artery and another stent in the posterior descending artery which were widely patent. There was some catheter induced spasm in the proximal vessel. ATTEMPTED PERCUTANEOUS CORONARY INTERVENTION: Percutaneous coronary intervention was attempted on the first obtuse marginal branch through a 6 [place] CLS 3.5 guide catheter. I first attempted to cross the stenosis with a Whisper extra- support guidewire but this would not pass through the stenosis. I then attempted to cross the stenosis with a Choice PT guidewire but this wire also would not pass. I advanced a 2.5 x 12 mm Trek balloon over the Choice PT guidewire to his attempt to use this for some backup support to cross the stenosis but the wire was still not crossed through. At that point, I elected to abort the procedure. There was no evidence of dissection or vessel perforation. IMPRESSION: 1. Normal left heart pressures. 2. Patent stents in the mid and distal left anterior descending coronary artery, ramus intermedius branch, distal right coronary artery and posterior descending artery as outlined above. 3. Totally occluded first obtuse marginal branch with NAVEED 0 flow. 4. Status post unsuccessful attempt to open the chronic total occlusion of the first obtuse marginal branch utilizing 2 different guidewires. 5. There is moderate residual disease in the distal left anterior descending coronary artery and mid segment of the left circumflex coronary artery as outlined above. 6. The patient is known to have normal left ventricular systolic function with a calculated ejection fraction of 65% by nuclear stress test that was performed on 10/14/2021. 7. If the patient continues to have angina following discharge, I may need to consider flow reserve measurements on the left anterior descending and left circumflex coronary arteries to see whether or not the stenoses in these vessels could be causing ischemia and his angina. Certain portions of this document may have been dictated utilizing voice recognition technology. Inherent to this technology, typographical and grammatical errors may exist. As much as I am diligent to identify and correct these mistakes, some errors may remain in the document. BORIS KERR JR, MD Dec 09, 2021 12:27
[2021-12-09] MEDS ORDERED: NS IV 1000 ML 1,000 ML IV SCH (12:30)
== END 2021-12-09 15:30 | disposition home or self-care (01) ==
LOC: CATH 10:00
PROVIDERS: ATTEND Internal Medicine Cardiovascular Disease
DX: I25.118 Atherosclerotic heart disease of native coronary artery with other forms of angina pectoris (principal); E66.9 Obesity, unspecified; Z68.30 Body mass index [BMI] 30.0-30.9, adult; Z87.891 Personal history of nicotine dependence; E78.2 Mixed hyperlipidemia; J44.9 Chronic obstructive pulmonary disease, unspecified; I10 Essential (primary) hypertension; Z79.899 Other long term (current) drug therapy
CPT/HCPCS: 87081; 92920; 93458; C1725; C1769 ×2; C1887; C1894

== ENCOUNTER → 2022-02-14 | Outpatient (CLI) | payer MEDICARE, MEDICAID ==
[~2022-02-14] MED LIST changes: +ALBU8.5H6 IH; -ASPIRIN 81 MG CHEW (CHILDREN'S ASA) PO ONE; -CATHETER FLUSH 10 ML SYR IV PRN; -HEParin (CATH LAB) 2,000 ML IV ONE; -LIDOCAINE 1% INJ 30 ML (XYLOCAINE) VIAL ONE; -NS IV 1000 ML 1,000 ML IV ONE; -NS IV 1000 ML 1,000 ML ONE; -RT-ALBUINH IH
[2022-02-14 08:16] LABS: BASOPHILS % (AUTO) 0 % (0-10); EOSINOPHILS # (AUTO) 0.1 10^3/uL (0.0-0.3); EOSINOPHILS % (AUTO) 3 % (0-10); HEMATOCRIT 41 % (40-54); HEMOGLOBIN 13.4 g/dL (13.3-17.7); LYMPHOCYTES # (AUTO) 1.4 10^3/uL (1.0-4.0); LYMPHOCYTES % (AUTO) 28 % (12-44); MEAN CORPUSCULAR HEMOGLOBIN 29 pg (25-34); MEAN CORPUSCULAR HGB CONC 33 g/dL (32-36); MEAN CORPUSCULAR VOLUME 87 fL (80-99); MEAN PLATELET VOLUME 10.3 fL (9.0-12.2); MONOCYTES # (AUTO) 0.7 10^3/uL (0.0-1.0); MONOCYTES % (AUTO) 14 % (0-12); NEUTROPHILS # (AUTO) 2.6 10^3/uL (1.8-7.8); NEUTROPHILS % (AUTO) 54 % (42-75); PLATELET COUNT 208 10^3/uL (130-400); WHITE BLOOD COUNT 4.9 10^3/uL (4.3-11.0)
[2022-02-14 08:31] LABS: PROTHROMBIN TIME PATIENT 13.3 SEC (12.2-14.7)
[2022-02-14 08:34] LABS: CALCIUM 8.9 MG/DL (8.5-10.1); CREATININE SERUM 0.79 MG/DL (0.60-1.30); POTASSIUM 3.9 MMOL/L (3.6-5.0)
== END ==
LOC: LAB 07:54
PROVIDERS: ATTEND Internal Medicine Cardiovascular Disease
DX: I25.118 Atherosclerotic heart disease of native coronary artery with other forms of angina pectoris (principal); I42.9 Cardiomyopathy, unspecified; I10 Essential (primary) hypertension; E78.2 Mixed hyperlipidemia; J44.9 Chronic obstructive pulmonary disease, unspecified; E66.9 Obesity, unspecified
CPT/HCPCS: 36415; 80048; 85025; 85610

== ENCOUNTER 2022-02-17 09:00 | Day surgery (SDC) | payer MEDICAID, MEDICARE ==
[~2022-02-17] VITALS: Ht 180 cm; Wt 98.4 kg
[2022-02-17] VITALS (12 sets, daily range): BP systolic 88–120; BP diastolic 47–83
--- NOTE | 2022-02-17 08:21 | Pre-Op Note & Conscious Sedat ---
Pre-Operative Progress Note Date H&P Reviewed: Feb 17, 2022 Time H&P Reviewed: 08:19 History & Physical: H&P Reviewed, Patient Examed, No changes noted Pre-Op Diagnosis: Coronary artery disease with angina pectoris Conscious Sedation Pre-Proced ASA Score 2 For ASA 3 and 4: Consider anesthesia and medical clearance. Also, for patients with a history of failed moderate sedation consider anesthesia. Airway Lungs Heart ASA score ASA 1: a normal healthy patient ASA 2: a patient with a mild systemic disease (mid diabetes, controlled hypertension, obesity ASA 3: a patient with a severe systemic disease that limits activity (angina, COPD, prior Myocardial infarction) ASA 4: a patient with an incapacitating disease that is a constant threat to life (CHF, renal failure) ASA 5: a moribund patient not expected to survive 24 hrs. (ruptured aneurysm) ASA 6: a declared brain- patient whose organs are being harvested. For emergent operations, add the letter E after the classification Mallampati Classification Grade 2 Sedation Plan Analgesia, Amnesia, Plan communicated to team members, Discussed options with patient/fam, Discussed risks with patient/fam The patient is an appropriate candidate to undergo the planned procedure, sedation, and anesthesia. The patient immediately re-assessed prior to indication. Given his current clinical status, he is considered mildly frail. He has no recent history of heart failure. BORIS KERR JR, MD Feb 17, 2022 08:21
[~2022-02-17 09:00] MED LIST changes: +ASPIRIN 81 MG CHEW (CHILDREN'S ASA) PO ONE; +CATHETER FLUSH 10 ML SYR IV PRN; +HEParin (CATH LAB) 2,000 ML IV ONE; +HEParin 1000 UNIT/ML (10ML VIAL) FOR BOLUS ONE; +LIDOCAINE 1% INJ 30 ML (XYLOCAINE) VIAL ONE; +MIDAZOLAM 5 MG/5 ML (VERSED) VIAL ONE; +NITRO DRIP 25000 MCG/D5W 250 ML IV ONE; +NS IV 1000 ML 1,000 ML IV ONE; +NS IV 1000 ML 1,000 ML ONE; +VERAPAMIL 5 MG/2 ML (CALAN) VIAL IV ONE; +fentaNYL INJ 100 MCG/2 ML AMP ONE
[2022-02-17] MEDS ORDERED: CLOPIDOGREL 75 MG (PLAVIX) TABLET ONE (10:43)
[2022-02-17] MEDS ORDERED: NS IV 1000 ML 1,000 ML IV SCH (11:00)
--- NOTE | 2022-02-17 11:33 | Cardiac Cath Report ---
CARDIAC CATHETERIZATION DATE OF PROCEDURE: 02/17/2022 INDICATION: Coronary artery disease with angina pectoris. HISTORY: The patient is a 56 year old male with a known history of coronary artery disease with previous stents in the left anterior descending. He had undergone a cardiac catheterization in December 2021 that showed an occluded obtuse marginal branch which I attempted to open but was not able to cross. His antianginal medication was maximized but he continued to have chest pain. Therefore, he is now referred for further evaluation with a cardiac catheterization and flow reserve measurements. Given his current clinical status, he is considered mildly frail. He has no recent history of heart failure. PROCEDURES PERFORMED: 1. Diagnostic coronary angiography. 2. Instantaneous free wave ratio (iFR) of distal left anterior descending coronary artery. 3. iFR of midportion of left circumflex coronary artery. 4. Drug-eluting stent placement to distal left anterior descending coronary artery. PROCEDURE DESCRIPTION: After informed consent and in the fasting state, left heart catheterization was performed through the right radial artery utilizing a 6 Bangl[place]hi system by percutaneous approach. A 6 Bangl[place] CLS 3.5 guide catheter was utilized for the diagnostic portion of the procedure. The catheter was exchanged over a guidewire. A [employer] iFR wire was utilized for IFR of the left anterior descending and left circumflex coronary arteries. Following the procedure, a vascular band was applied to the radial artery access site and the sheath was removed with good hemostasis. RESULTS: HEMODYNAMICS: The aortic pressure was 98/60 mmHg. The aortic valve was not crossed. CORONARY ANGIOGRAPHY: The left coronary artery was the only vessel studied. Left main coronary artery: Free of significant disease. Left anterior descending coronary artery: There was a stent in the midsegment and another stent in the distal segment both of which were widely patent. There was a long 50% stenosis distal to the distal vessel with NAVEED-3 flow. The first large diagonal branch contained a long 70% stenosis proximally with NAVEED-3 flow. This was approximately a 2 mm vessel. Left circumflex coronary artery: Codominant and there appeared to be a moderate- sized first obtuse marginal branch which was totally occluded proximally with NAVEED 0 flow. No collaterals were seen to this branch. There was a 70% stenosis in the midportion of the left circumflex coronary artery just distal to this occluded obtuse marginal branch with NAVEED-3 flow. The left posterolateral branch versus a very distal obtuse marginal branch was free of significant disease. Ramus intermedius branch: There was a moderate sized ramus intermedius branch which contained a stent in the proximal segment which was widely patent. IFR OF DISTAL LEFT ANTERIOR DESCENDING CORONARY ARTERY: 0.86. This is considered hemodynamically significant. IFR OF LEFT CIRCUMFLEX CORONARY ARTERY: 0.93. This is not considered hemodynamically significant. No intervention is indicated. PERCUTANEOUS CORONARY INTERVENTION: Percutaneous coronary convention was carried out on the distal left anterior descending coronary artery through the 6 Bangl[place] CLS 3.5 guide catheter. The [employer] iFR wire was left in place. I bermeo bsequently performed coronary angioplasty with a 2.75 x 20 mm Trek balloon at a pressure of 10 daivd. I subsequently deployed a 3 x 23 mm drug-eluting Xience Skypoint stent at a pressure of 20 david. This stent overlapped the distal segment of a previously placed stent. The overlap segment was then postdilated with the stent balloon at a pressure of 20 david. Following stent placement, there was 0% residual stenosis with NAVEED-3 flow. IMPRESSION: 1. Normal central aortic pressure. 2. IFR of the distal left anterior descending coronary artery was hemodynamically significant at 0.86. 3. IFR of the midportion of the left circumflex coronary artery was not hemodynamically significant at 0.93. 4. Status post drug-eluting stent placement to the distal left anterior descending coronary artery overlapping a previously placed stent with a 3 x 23 mm Xience Skypoint stent with 0% residual stenosis and NAVEED-3 flow. 5. The patient is known to have normal left ventricular systolic function with a calculated ejection fraction of 65% by nuclear stress test that was performed on 10/14/2021. Certain portions of this document may have been dictated utilizing voice recognition technology. Inherent to this technology, typographical and grammatical errors may exist. As much as I am diligent to identify and correct these mistakes, some errors may remain in the document. BORIS KERR JR, MD Feb 17, 2022 11:33
== END 2022-02-17 14:08 | disposition home or self-care (01) ==
LOC: CATH 09:00 → CSD 11:05 → CATH 14:08
PROVIDERS: ATTEND Internal Medicine Cardiovascular Disease
DX: I25.119 Atherosclerotic heart disease of native coronary artery with unspecified angina pectoris (principal); Z87.891 Personal history of nicotine dependence; E66.9 Obesity, unspecified; Z68.30 Body mass index [BMI] 30.0-30.9, adult; I42.9 Cardiomyopathy, unspecified; I10 Essential (primary) hypertension; E78.2 Mixed hyperlipidemia; J44.9 Chronic obstructive pulmonary disease, unspecified
CPT/HCPCS: 87081; 93454; 93571; 93572; C1725; C1769; C1874; C1887; C1894; C9600

== ENCOUNTER 2022-03-03 20:43 | Emergency (ER) | payer MEDICARE, MEDICAID ==
[~2022-03-03] VITALS: Ht 180.3 cm; Wt 90.7 kg
[~2022-03-03 20:43] MED LIST changes: -ASPIRIN 81 MG CHEW (CHILDREN'S ASA) PO ONE; -CATHETER FLUSH 10 ML SYR IV PRN; -HEParin (CATH LAB) 2,000 ML IV ONE; -HEParin 1000 UNIT/ML (10ML VIAL) FOR BOLUS ONE; -LIDOCAINE 1% INJ 30 ML (XYLOCAINE) VIAL ONE; -MIDAZOLAM 5 MG/5 ML (VERSED) VIAL ONE; -NITRO DRIP 25000 MCG/D5W 250 ML IV ONE; -NS IV 1000 ML 1,000 ML IV ONE; -NS IV 1000 ML 1,000 ML ONE; -VERAPAMIL 5 MG/2 ML (CALAN) VIAL IV ONE; -fentaNYL INJ 100 MCG/2 ML AMP ONE
[2022-03-03] MEDS ORDERED: fentaNYL INJ 100 MCG/2 ML AMP IVP STA (21:06)
[2022-03-03 21:11] LABS: BASOPHILS % (AUTO) 0 % (0-10); EOSINOPHILS # (AUTO) 0.1 10^3/uL (0.0-0.3); EOSINOPHILS % (AUTO) 2 % (0-10); HEMATOCRIT 41 % (40-54); HEMOGLOBIN 13.7 g/dL (13.3-17.7); LYMPHOCYTES # (AUTO) 1.9 10^3/uL (1.0-4.0); LYMPHOCYTES % (AUTO) 27 % (12-44); MEAN CORPUSCULAR HEMOGLOBIN 29 pg (25-34); MEAN CORPUSCULAR HGB CONC 34 g/dL (32-36); MEAN CORPUSCULAR VOLUME 86 fL (80-99); MEAN PLATELET VOLUME 10.5 fL (9.0-12.2); MONOCYTES # (AUTO) 0.8 10^3/uL (0.0-1.0); MONOCYTES % (AUTO) 11 % (0-12); NEUTROPHILS # (AUTO) 4.3 10^3/uL (1.8-7.8); NEUTROPHILS % (AUTO) 59 % (42-75); PLATELET COUNT 248 10^3/uL (130-400); WHITE BLOOD COUNT 7.2 10^3/uL (4.3-11.0)
[2022-03-03 21:13] LABS: ALBUMIN 4.4 GM/DL (3.2-4.5)
--- NOTE | 2022-03-03 21:13 | ED Fall/Injury ---
General Chief Complaint: Trauma-Non Activation Stated Complaint: FALL/HIT HEAD RT HIP PAIN Nursing Triage Note: PT TO RM 5 BY EMS WITH CC OF FALL AT HOME ABOUT 1 HOUR PRIOR TO ARRIVAL. PT REPORTS HE WAS AT HOME WHEN HE STOOD UP FROM A CHAIR AND BECAME LIGHTHEADED. PT STATES HE HIT HIS HEAD ON A FURNACE UNK LOC. PT COMPLAINS OF R HIP PAIN, R ELBOW AND HEAD PAIN. HX OF STROKE, HEART ATTACK. PT A&OX4 History of Present Illness Date Seen by Provider: Mar 03, 2022 Time Seen by Provider: 20:50 Initial Comments 56-year-old male reports falling at home, he believes there was a short loss of consciousness but he is unsure. He had taken his blood pressure and then lost his balance causing him to fall with a minor contusion to his right parietal region. He is on Plavix for history of strokes. He also has a history of CAD. He complains of pain to his right hip and right elbow as well as his head and low back. Brought by EMS. He is alert and oriented, c-collar in place. Occurred: just prior to arrival Injuries/Pain Location: head, upper extremity (right elbow), back, pelvis Context: lost balance Loss of Consciousness: brief (seconds) Associated Symptoms (Fall): No Abdominal Pain, No Chest Pain, No Confusion, No Dizziness, No Headache, No Muscle Spasms, No Neck Pain, No Slurred Speech; Trouble Walking (secondary to pain); No Vision Changes Allergies and Home Medications Allergies Coded Allergies: Penicillins (Verified Allergy, Unknown, 05/12/19) Patient Home Medication List Home Medication List Reviewed: Yes Albuterol Sulfate (Ventolin Hfa) 1 Puff Puff, 2 PUFF IH Q4H PRN for SHORTNESS OF BREATH, (Reported) Entered as Reported by: MINNIE SAINI on 12/09/21 09 Aspirin (Aspirin EC) 81 Mg Tablet.dr, 81 MG PO HS, (Reported) Entered as Reported by: MINNIE SAINI on 12/09/21932 Atorvastatin Calcium (Atorvastatin Calcium) 80 Mg Tablet, 80 MG PO HS, (Reported) Entered as Reported by: MINNIE SAINI on 12/09/21932 Buspirone HCl (Buspirone HCl) 10 Mg Tablet, 10 MG PO BID, (Reported) Entered as Reported by: MINNIE SAINI on 12/09/21932 Carvedilol (Carvedilol) 12.5 Mg Tablet, 12.5 MG PO BID, (Reported) Entered as Reported by: MINNIE SAINI on 12/09/21932 Cetirizine HCl (Cetirizine HCl) 10 Mg Tablet, 10 MG PO HS, (Reported) Entered as Reported by: MINNIE SAINI on 12/09/21932 Clopidogrel Bisulfate (Clopidogrel) 75 Mg Tablet, 75 MG PO DAILY, (Reported) Entered as Reported by: MINNIE SAINI on 12/09/21932 Cyclobenzaprine HCl (Cyclobenzaprine HCl) 10 Mg Tablet, 10 MG PO BID PRN for SPASMS, (Reported) Entered as Reported by: MINNIE SAINI on 12/09/21932 Lisinopril (Lisinopril) 2.5 Mg Tablet, 2.5 MG PO DAILY, (Reported) Entered as Reported by: MINNIE SAINI on 12/09/21932 Meloxicam (Meloxicam) 15 Mg Tablet, 15 MG PO DAILY, (Reported) Entered as Reported by: MINNIE SAINI on 12/09/21932 Montelukast Sodium (Montelukast Sodium) 10 Mg Tablet, 10 MG PO HS, (Reported) Entered as Reported by: MINNIE SAINI on 12/09/21932 Nitroglycerin (Nitroglycerin) 0.4 Mg Tab.subl, 0.4 MG SL UD PRN for CHEST PAIN, (Reported) Entered as Reported by: MINNIE SAINI on 12/09/21932 Nitroglycerin (Nitroglycerin 0.4mg/HR Patch) 0.4 Mg/Hour Patch.td24, 1 EACH TD DAILY, (Reported) Entered as Reported by: MINNIE SAINI on 12/09/21932 Omeprazole (Omeprazole) 20 Mg Capsule.dr, 20 MG PO DAILY, (Reported) Entered as Reported by: MINNIE SAINI on 12/09/21932 Review of Systems Review of Systems Constitutional: no symptoms reported, see HPI Eyes: No Symptoms Reported, See HPI Ears, Nose, Mouth, Throat: no symptoms reported, see HPI Respiratory: no symptoms reported, see HPI Cardiovascular: no symptoms reported, see HPI; No chest pain Gastrointestinal: no symptoms reported, see HPI Genitourinary: no symptoms reported, see HPI Musculoskeletal: see HPI, back pain, joint pain (right hip) Skin: no symptoms reported, see HPI, other (no abrasions or lacerations. ) Psychiatric/Neurological: No Symptoms Reported, See HPI All Other Systems Reviewed Negative Unless Noted: Yes Past Ghfsnji-Yyzaev-Crifsl Hx Immunizations Up To Date Tetanus Booster (TDap): Unknown PED Vaccines UTD: Yes Second COVID19 Vaccination Wesley: 08/17/21 Seasonal Allergies Seasonal Allergies: No Past Medical History Surgery/Hospitalization HX: previous cardiac stents, acid reflux Surgeries: Yes Coronary Stent, Orthopedic Respiratory: Yes COPD Cardiac: Yes (stents) Coronary Artery Disease, Heart Attack, High Cholesterol, Hypertension, Syncope Neurological: No Stroke Genitourinary: No Gastrointestinal: No Gastroesophageal Reflux Musculoskeletal: No Endocrine: No HEENT: No Cancer: No Psychosocial: No Integumentary: No Family Medical History Reviewed Nursing Family Hx No Pertinent Family Hx Physical Exam Vital Signs Vital Signs - First Documented 03/03/22 20:48 Temp 36.6 Pulse 75 Resp 13 B/P (MAP) 146/99 (115) Pulse Ox 96 O2 Delivery Room Air Capillary Refill : Less Than 3 Seconds Height, Weight, BMI Height: '" Weight: lbs. oz. kg; 27.00 BMI Method: General Appearance: WD/WN, mild distress (secondary to pain) HEENT: PERRL/EOMI, normal ENT inspection, TMs normal, pharynx normal Neck: non-tender, normal inspection, limited range of motion (C collar in place) Cardiovascular: normal peripheral pulses, regular rate, rhythm, no murmur Respiratory: chest non-tender, lungs clear, normal breath sounds Gastrointestinal: normal bowel sounds, non tender, soft, distended Back: normal inspection, vertebral tenderness (Lower lumbar) Extremities: normal range of motion (Bilat UEs and left LE. Pain with ROM to right hip. 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, no motor/sensory deficits, alert, normal mood/affect, oriented x 3 Skin: normal color, warm/dry Jennifer Coma Score Best Eye Response: (4) Open Spontaneously Best Verbal Response: (5) Oriented Best Motor Response: (6) Obeys Commands Jennifer Total: 15 Progress/Results/Core Measures Results/Orders Lab Results Laboratory Tests Test 03/03/22 20:53 03/03/22 21:48 Range/Units White Blood Count 7.2 4.3-11.0 10^3/uL Red Blood Count 4.73 4.30-5.52 10^6/uL Hemoglobin 13.7 13.3-17.7 g/dL Hematocrit 41 40-54 % Mean Corpuscular Volume 86 80-99 fL Mean Corpuscular Hemoglobin 29 25-34 pg Mean Corpuscular Hemoglobin Concent 34 32-36 g/dL Red Cell Distribution Width 15.0 H 10.0-14.5 % Platelet Count 248 130-400 10^3/uL Mean Platelet Volume 10.5 9.0-12.2 fL Immature Granulocyte % (Auto) 0 % Neutrophils (%) (Auto) 59 42-75 % Lymphocytes (%) (Auto) 27 12-44 % Monocytes (%) (Auto) 11 0-12 % Eosinophils (%) (Auto) 2 0-10 % Basophils (%) (Auto) 0 0-10 % Neutrophils # (Auto) 4.3 1.8-7.8 10^3/uL Lymphocytes # (Auto) 1.9 1.0-4.0 10^3/uL Monocytes # (Auto) 0.8 0.0-1.0 10^3/uL Eosinophils # (Auto) 0.1 0.0-0.3 10^3/uL Basophils # (Auto) 0.0 0.0-0.1 10^3/uL Immature Granulocyte # (Auto) 0.0 0.0-0.1 10^3/uL Prothrombin Time 13.3 12.2-14.7 SEC INR Comment 1.0 0.8-1.4 Activated Partial Thromboplast Time 31 24-35 SEC Sodium Level 140 135-145 MMOL/L Potassium Level 3.8 3.6-5.0 MMOL/L Chloride Level 108 H 98-107 MMOL/L Carbon Dioxide Level 23 21-32 MMOL/L Anion Gap 9 5-14 MMOL/L Blood Urea Nitrogen 17 7-18 MG/DL Creatinine 0.84 0.60-1.30 MG/DL Estimat Glomerular Filtration Rate 104 BUN/Creatinine Ratio 20 Glucose Level 108 H 70-105 MG/DL Calcium Level 9.5 8.5-10.1 MG/DL Corrected Calcium 9.2 8.5-10.1 MG/DL Total Bilirubin 0.7 0.1-1.0 MG/DL Aspartate Amino Transf (AST/SGOT) 20 5-34 U/L Alanine Aminotransferase (ALT/SGPT) 26 0-55 U/L Alkaline Phosphatase 118 40-136 U/L Troponin I < 0.028 <0.028 NG/ML B-Type Natriuretic Peptide 11.0 <100.0 PG/ML Total Protein 7.6 6.4-8.2 GM/DL Albumin 4.4 3.2-4.5 GM/DL Urine Color YELLOW Urine Clarity CLEAR Urine pH 7.0 5-9 Urine Specific Her[place] 1.015 L 1.016-1.022 Urine Protein NEGATIVE NEGATIVE Urine Glucose (UA) NEGATIVE NEGATIVE Urine Ketones NEGATIVE NEGATIVE Urine Nitrite NEGATIVE NEGATIVE Urine Bilirubin NEGATIVE NEGATIVE Urine Urobilinogen 1.0 < = 1.0 MG/DL Urine Leukocyte Esterase NEGATIVE NEGATIVE Urine RBC (Auto) NEGATIVE NEGATIVE Urine RBC NONE /HPF Urine WBC RARE /HPF Urine Squamous Epithelial Cells RARE /HPF Urine Renal Epithelial Cells NONE /HPF Urine Crystals NONE /LPF Urine Bacteria NEGATIVE /HPF Urine Casts NONE /LPF Urine Mucus NEGATIVE /LPF Urine Culture Indicated NO My Orders Orders - NAUN CABRERA Ct Head/Cervical Spine Wo (03/03/22 21:05) Ct Lumbar Spine Wo (03/03/22 21:05) Chest 1 View, Ap/Pa Only (03/03/22 21:05) Elbow, Right, 3 Views (03/03/22 21:05) Pelvis With Right Hip 2-3views (03/03/22 21:05) Bnp [place] (03/03/22 21:06) Cbc With Automated Diff (03/03/22 21:06) Comprehensive Metabolic Panel (03/03/22 21:06) Protime With Inr (03/03/22 21:06) Partial Thromboplastin Time (03/03/22 21:06) Troponin I Ramses (03/03/22 21:06) Ua Culture If Indicated (03/03/22 21:06) Fentanyl Inj (Sublimaze Injection) (03/03/22 21:06) Ekg Tracing (03/03/22 21:21) Continuous Ekg Monitoring (03/03/22 21:21) Vital Signs/I&O 03/03/22 03/03/22 20:48 22:34 Temp 36.6 Pulse 75 73 Resp 13 25 B/P (MAP) 146/99 (115) 148/85 Pulse Ox 96 96 O2 Delivery Room Air Room Air Blood Pressure Mean: 115 Progress Progress Note : Time: 20:50 Progress Note Patient assessed, will obtain labs, CT head neck and lumbar spine. X-rays of the right elbow, pelvis and right hip. EKG. Fentanyl 50 mcg for pain. 2[address] C spine clear by CT, No acute head injuries by CT. C-Collar removed. No paresthesias or radicular symptoms. Patient taking ice chips. 2214 patient continues to have no complaints. D/C instructions and return precautions discussed. Family member here to drive patient home and monitor him. Initial ECG Impression Date: Mar 03, 2022 Initial ECG Impression Time: 21:41 Initial ECG Rate: 70 Initial ECG Rhythm: Normal Sinus Initial ECG Intervals: Normal Initial ECG Intervals MD 197, QRS D 94, QT 409, QTc 429. Sharps P9, RR -24, T 23 Initial ECG Impression: Normal Initial ECG Comparisson: Unchanged Diagnostic Imaging Diagonstic Imaging: CT Plain Films/CT/US/NM/MRI: c-spine, head Comments NAME: LIVIER ABARCA MED REC#: [id number] PT STATUS: REG ER : 1965 PHYSICIAN: NAUN CABRERA ADMIT DATE: 03/03/22/ER Draft Date of Exam:03/03/22 CT HEAD/CERVICAL SPINE WO EXAMINATION: CT head and CT cervical spine without contrast. TECHNIQUE: Multiple contiguous axial images were obtained through the brain and cervical spine without the use of intravenous contrast. Sagittal and coronal reformations through the cervical spine were then performed. All CT scans use one or more of the following dose optimizing techniques: automated exposure control, MA and/or KvP adjustment based on patient size and exam type or iterative reconstruction. HISTORY: Head and neck pain after fall. COMPARISON: 05/12/2019. FINDINGS: HEAD: The ventricles and sulci are normal. No abnormal attenuation of brain parenchyma is present. No acute intracranial hemorrhage or abnormal extra-axial fluid collections are present. No hyperdense vessel. The calvarium is intact. The mastoid air cells are clear. The visualized paranasal sinuses are clear. The orbits are normal. C-SPINE: Vertebral body height and alignment are preserved. No acute fracture, dislocation, or destructive osseous process. No significant facet hypertrophy. No significant central canal or neuroforaminal stenosis. The paraspinous soft tissues are normal. The visualized thyroid gland is normal. The visualized lung apices are normal. IMPRESSION: 1. No acute intracranial abnormality. 2. No cervical spine fracture. Dictated on workstation # [id number] Dict: 03/03/222129 Trans: 03/03/222135 [facility] [id number] Interpreted by: DAVIS PARKS DO Electronically signed by: Reviewed: Reviewed by Dc Diagonstic Imaging: CT Plain Films/CT/US/NM/MRI: other (L Spine) Comments NAME: LIVIER ABARCA [employer] REC#: [id number] PT STATUS: REG ER : 1965 PHYSICIAN: NAUN CABRERA ADMIT DATE: 03/03/22/ER Draft Date of Exam:03/03/22 CT LUMBAR SPINE WO EXAMINATION: CT lumbar spine without contrast. TECHNIQUE: Multiple contiguous axial images were obtained through the lumbar spine without the use of intravenous contrast. Sagittal and coronal reformations were then performed. All CT scans use one or more of the following dose optimizing techniques: automated exposure control, MA and/or KvP adjustment based on patient size and exam type or iterative reconstruction. HISTORY: Back pain after injury. COMPARISON: None available. FINDINGS: The alignment of the lumbar spine is normal. Vertebral body heights are normal and no fracture is seen. Facet joints are normal. Mild disc height loss at L4-L5. There is mild lumbar spondylosis. Limited views of the abdomen and pelvis show no soft tissue abnormality. The aorta is normal. IMPRESSION: No acute osseous abnormality of the lumbar spine. Dictated on workstation # [id number] Dict: 03/03/222131 Trans: 03/03/222135 [facility] [id number] Interpreted by: DAVIS PARKS DO Electronically signed by: Reviewed: Reviewed by Dc Diagonstic Imaging: Xray Plain Films/CT/US/NM/MRI: pelvis, hip Comments NAME: RIMALIVIER Sky MED REC#: [id number] PT STATUS: REG ER : 1965 PHYSICIAN: NAUN CABRERA ADMIT DATE: 03/03/22/ER Draft Date of Exam:03/03/22 PELVIS WITH RIGHT HIP 2-3VIEWS EXAMINATION: Pelvis and right hip radiographs. EXAM DATE: 03/03/2022 9:39 PM COMPARISON: None available. HISTORY: Pelvic and hip pain. TECHNIQUE: 3 views. FINDINGS: There is no acute fracture, dislocation, or destructive osseous process. The joint spaces are normal. The soft tissues are normal. IMPRESSION: No acute osseous abnormality. Dictated on workstation # [id number] Dict: 03/03/222143 Trans: 03/03/222147 [facility] [id number] Interpreted by: DAVIS PARKS DO Electronically signed by: Reviewed: Reviewed by Dc Diagonstic Imaging: Xray Plain Films/CT/US/NM/MRI: elbow Comments NAME: LIVIER ABARCA MED REC#: [id number] PT STATUS: REG ER : 1965 PHYSICIAN: NAUN CABRERA ADMIT DATE: 03/03/22/ER Draft Date of Exam:03/03/22 ELBOW, RIGHT, 3 VIEWS EXAMINATION: Right elbow radiographs. EXAM DATE: 03/03/2022 9:39 PM COMPARISON: None available. HISTORY: Elbow pain. TECHNIQUE: 3 views. FINDINGS: There is no acute fracture, dislocation, or destructive osseous process. The joint spaces are normal. The soft tissues are normal. IMPRESSION: No acute osseous abnormality. Dictated on workstation # [id number] Dict: 03/03/222143 Trans: 03/03/222147 [facility] [id number] Interpreted by: DAVIS PARKS DO Electronically signed by: Reviewed: Reviewed by Dc Diagonstic Imaging: Xray Plain Films/CT/US/NM/MRI: chest Comments JENA: LIVIER ABARCA MED REC#: [id number] PT STATUS: REG ER : 1965 PHYSICIAN: NAUN CABRERA ADMIT DATE: 03/03/22/ER Signed Date of Exam:03/03/22 CHEST 1 VIEW, AP/PA ONLY EXAMINATION: Chest 1 view. HISTORY: Chest pain after fall. COMPARISON: 11/24/2021. FINDINGS: Heart size is upper limits of normal. The lungs are clear without consolidation, pleural effusion, or pneumothorax. The osseous structures are intact. IMPRESSION: No acute radiographic abnormality in the chest. Dictated by: Dictated on workstation # [id number] Dict: 03/03/222142 Trans: 03/03/222152 [facility] [id number] Interpreted by: DAVIS PARKS DO Electronically signed by: DAVIS PARKS DO 03/03/222152 Reviewed: Reviewed by Me Departure Impression Primary Impression: Fall Qualified Codes: W19.XXXA - Unspecified fall, initial encounter Additional Impressions: Hip pain Right elbow pain Low back pain Qualified Codes: M54.50 - Low back pain, unspecified CAD (coronary artery disease) Qualified Codes: I25.10 - Atherosclerotic heart disease of [place] coronary artery without angina pectoris Disposition: HOME, SELF-CARE Condition: Stable Departure-Patient Inst. Decision time for Depature: 22:05 Referrals: [facility] (PCP/Family) Primary Care Physician Patient Instructions: Minor Head Injury (DC), Hip Pain (DC) Add. Discharge Instructions: Continue all home medications. Move slowly from sitting, standing, and lying. Use walker or cane, if gait is unsteady. Follow up with Primary Care, if symptoms do not improve or worsen. Return to Emergency Dept for new/urgent healthcare needs. All discharge instructions reviewed with patient and/or family. Voiced understanding. NAUN CABRERA Mar 03, 2022 21:13
[2022-03-03 21:14] LABS: CHLORIDE 108 MMOL/L (98-107); POTASSIUM 3.8 MMOL/L (3.6-5.0); SODIUM 140 MMOL/L (135-145)
[2022-03-03 21:15] LABS: CALCIUM 9.5 MG/DL (8.5-10.1)
[2022-03-03 21:16] LABS: GLUCOSE 108 MG/DL (70-105); TOTAL PROTEIN 7.6 GM/DL (6.4-8.2)
[2022-03-03 21:17] LABS: CARBON DIOXIDE 23 MMOL/L (21-32); PROTHROMBIN TIME PATIENT 13.3 SEC (12.2-14.7)
[2022-03-03 21:18] LABS: BILIRUBIN,TOTAL 0.7 MG/DL (0.1-1.0)
[2022-03-03 21:19] LABS: ALKALINE PHOSPHATASE 118 U/L (40-136)
[2022-03-03 21:20] LABS: CREATININE SERUM 0.84 MG/DL (0.60-1.30); GFR ESTIMATED 104
[2022-03-03 21:21] LABS: BUN/CREATININE RATIO 20
[2022-03-03 21:23] LABS: ALANINE AMINOTRANSFERASE 26 U/L (0-55)
--- NOTE | 2022-03-03 21:36 | Diagnostic Imaging Report ---
EXAMINATION: CT head and CT cervical spine without contrast. TECHNIQUE: Multiple contiguous axial images were obtained through the brain and cervical spine without the use of intravenous contrast. Sagittal and coronal reformations through the cervical spine were then performed. All CT scans use one or more of the following dose optimizing techniques: automated exposure control, MA and/or KvP adjustment based on patient size and exam type or iterative reconstruction. HISTORY: Head and neck pain after fall. COMPARISON: 05/12/2019. FINDINGS: HEAD: The ventricles and sulci are normal. No abnormal attenuation of brain parenchyma is present. No acute intracranial hemorrhage or abnormal extra-axial fluid collections are present. No hyperdense vessel. The calvarium is intact. The mastoid air cells are clear. The visualized paranasal sinuses are clear. The orbits are normal. C-SPINE: Vertebral body height and alignment are preserved. No acute fracture, dislocation, or destructive osseous process. No significant facet hypertrophy. No significant central canal or neuroforaminal stenosis. The paraspinous soft tissues are normal. The visualized thyroid gland is normal. The visualized lung apices are normal. IMPRESSION: 1. No acute intracranial abnormality. 2. No cervical spine fracture. Dictated by: Dictated on workstation # [id number]
--- NOTE | 2022-03-03 21:37 | Diagnostic Imaging Report ---
EXAMINATION: CT lumbar spine without contrast. TECHNIQUE: Multiple contiguous axial images were obtained through the lumbar spine without the use of intravenous contrast. Sagittal and coronal reformations were then performed. All CT scans use one or more of the following dose optimizing techniques: automated exposure control, MA and/or KvP adjustment based on patient size and exam type or iterative reconstruction. HISTORY: Back pain after injury. COMPARISON: None available. FINDINGS: The alignment of the lumbar spine is normal. Vertebral body heights are normal and no fracture is seen. Facet joints are normal. Mild disc height loss at L4-L5. There is mild lumbar spondylosis. Limited views of the abdomen and pelvis show no soft tissue abnormality. The aorta is normal. IMPRESSION: No acute osseous abnormality of the lumbar spine. Dictated by: Dictated on workstation # [id number]
--- NOTE | 2022-03-03 21:48 | Diagnostic Imaging Report ---
EXAMINATION: Chest 1 view. HISTORY: Chest pain after fall. COMPARISON: 11/24/2021. FINDINGS: Heart size is upper limits of normal. The lungs are clear without consolidation, pleural effusion, or pneumothorax. The osseous structures are intact. IMPRESSION: No acute radiographic abnormality in the chest. Dictated by: Dictated on workstation # [id number]
--- NOTE | 2022-03-03 21:48 | Diagnostic Imaging Report ---
EXAMINATION: Right elbow radiographs. EXAM DATE: 03/03/2022 9:39 PM COMPARISON: None available. HISTORY: Elbow pain. TECHNIQUE: 3 views. FINDINGS: There is no acute fracture, dislocation, or destructive osseous process. The joint spaces are normal. The soft tissues are normal. IMPRESSION: No acute osseous abnormality. Dictated by: Dictated on workstation # [id number]
--- NOTE | 2022-03-03 21:49 | Diagnostic Imaging Report ---
EXAMINATION: Pelvis and right hip radiographs. EXAM DATE: 03/03/2022 9:39 PM COMPARISON: None available. HISTORY: Pelvic and hip pain. TECHNIQUE: 3 views. FINDINGS: There is no acute fracture, dislocation, or destructive osseous process. The joint spaces are normal. The soft tissues are normal. IMPRESSION: No acute osseous abnormality. Dictated by: Dictated on workstation # [id number]
[2022-03-03 21:56] LABS: BILIRUBIN,URINE NEGATIVE (NEGATIVE); CLARITY,URINE CLEAR; COLOR,URINE YELLOW; GLUCOSE, URINE (UA) NEGATIVE (NEGATIVE); KETONES,URINE NEGATIVE (NEGATIVE); LEUKOCYTE ESTERASE ,URINE NEGATIVE (NEGATIVE); NITRITE,URINE NEGATIVE (NEGATIVE); PROTEIN,URINE NEGATIVE (NEGATIVE)
[2022-03-03 22:05] LABS: BACTERIA,URINE NEGATIVE /HPF; SQUAMOUS EPITHELIAL CELL,UR RARE /HPF; WBC,URINE RARE /HPF
[2022-03-03 22:34] VITALS: BP 148/85
== END 2022-03-03 22:34 | disposition home or self-care (01) ==
LOC: EDUNIT# 20:43 → ER 20:45
DX: M25.521 Pain in right elbow (principal); M54.50 Low back pain, unspecified; M25.551 Pain in right hip; I10 Essential (primary) hypertension; I25.10 Atherosclerotic heart disease of native coronary artery without angina pectoris; Z79.02 Long term (current) use of antithrombotics/antiplatelets; W18.30XA Fall on same level, unspecified, initial encounter; Y92.009 Unspecified place in unspecified non-institutional (private) residence as the place of occurrence of the external cause
CPT/HCPCS: 36415; 70450; 71045; 72125; 72131; 73080; 80053; 81000; 83880; 84484; 85025; 85610; 85730

== ENCOUNTER 2022-09-16 12:39 | Day surgery (SDC) | payer MEDICARE, MEDICAID ==
[2022-09-16] VITALS (8 sets, daily range): BP systolic 91–113; BP diastolic 58–75
[~2022-09-16] VITALS: Ht 180.3 cm; Wt 92.6 kg
[2022-09-16] MEDS ORDERED: LIDOCAINE 1% INJ 20 ML VIAL ONE (12:54)
[2022-09-16] MEDS ORDERED: NS IV 1000 ML 1,000 ML ONE (12:54)
[2022-09-16] MEDS ORDERED: HEParin (CATH LAB) 2,000 ML IV ONE (12:54)
[2022-09-16] MEDS ORDERED: NS IV 1000 ML 1,000 ML IV SCH ×2 (13:00→16:30)
[2022-09-16 13:16] LABS: HEMATOCRIT 41 % (40-54); HEMOGLOBIN 14.2 g/dL (13.3-17.7); MEAN CORPUSCULAR HEMOGLOBIN 30 pg (25-34); MEAN CORPUSCULAR HGB CONC 34 g/dL (32-36); MEAN CORPUSCULAR VOLUME 88 fL (80-99); MEAN PLATELET VOLUME 10.3 fL (9.0-12.2); PLATELET COUNT 221 10^3/uL (130-400); WHITE BLOOD COUNT 6.6 10^3/uL (4.3-11.0)
[2022-09-16 13:26] LABS: PROTHROMBIN TIME PATIENT 13.4 SEC (12.2-14.7)
[2022-09-16] MEDS ORDERED: NICO-685 TD (13:28)
[2022-09-16] MEDS ORDERED: MELA5TAB19 PO (13:28)
[2022-09-16] MEDS ORDERED: PANT40TA2 PO (13:28)
[2022-09-16] MEDS ORDERED: BUDE10.22 IH (13:28)
[2022-09-16] MEDS ORDERED: RANO10005 PO (13:28)
[2022-09-16] MEDS ORDERED: BUSP10TA95 PO (13:28)
[2022-09-16] MEDS ORDERED: NITR1PAT57 TD (13:28)
[2022-09-16 13:37] LABS: ALBUMIN 4.2 GM/DL (3.2-4.5); BILIRUBIN,TOTAL 1.4 MG/DL (0.1-1.0); CALCIUM 8.9 MG/DL (8.5-10.1); CREATININE SERUM 0.83 MG/DL (0.60-1.30); POTASSIUM 3.9 MMOL/L (3.6-5.0); TOTAL PROTEIN 6.6 GM/DL (6.4-8.2)
[2022-09-16] MEDS ORDERED: HEParin 1000 UNIT/ML (10ML VIAL) FOR BOLUS ONE (14:52)
[2022-09-16] MEDS ORDERED: MIDAZOLAM 5 MG/5 ML (VERSED) VIAL ONE (14:52)
[2022-09-16] MEDS ORDERED: VERAPAMIL 5 MG/2 ML (CALAN) VIAL IV ONE (14:52)
[2022-09-16] MEDS ORDERED: NITRO DRIP 25000 MCG/D5W 250 ML IV ONE (14:52)
[2022-09-16] MEDS ORDERED: fentaNYL INJ 100 MCG/2 ML AMP ONE (14:52)
[2022-09-16] MEDS ORDERED: PATIENT MAY USE OWN MEDS, ALL PO SCH (16:30)
--- NOTE | 2022-09-16 16:30 | Cardiac Cath Report ---
CARDIAC CATHETERIZATION DATE OF PROCEDURE: 09-16-22 INDICATION: Chest pain, CAD HISTORY: The patient is a 56 year old male multiple cor PCIs who has chronic intermittent chest pain that has become more frequent (daily) and longer (up to 30 min) lately PROCEDURES PERFORMED: 1. Cor angio 2. LHC 3. LV angiography PROCEDURE DESCRIPTION: After informed consent and in the fasting state, left heart catheterization was performed through the R radial artery utilizing a 6 Chinese system by percutaneous approach. 6F JL4 for L cor. 6F JR4 for R cor and for LHC and LV angiography All catheters were exchanged over a guidewire. HEMODYNAMICS: LVEDP 16 mmHg, no significant pressure gradient on pullback across the aortic valve CORONARY ANGIOGRAPHY: Left main coronary artery: Ok Left anterior descending coronary artery: mild to mod diffuse disease, 30% ostial, patent stent in the prox vessel, 40-50% mid-vessel stenosis, patent stents in the distal vessel; a diag arising from the mid-LAD is of relatively small caliber and has approx 60% ostial and proximal stenosis Ramus Intermedius: mild, diffuse disease Left circumflex coronary artery: 40-50% mid-vessel stenosis, first OM chronically occluded (unchanged from past studies) Right coronary artery: dominant, patent stents in the distal RCA and PDA LV angiography LVEF approx 60% without distinct regional wall motion abnormality in the ESPINOZA projection IMPRESSION: 1. Left main coronary artery: Ok. Left anterior descending coronary artery: mild to mod diffuse disease, 30% ostial, patent stent in the prox vessel, 40-50% mid-vessel stenosis, patent stents in the distal vessel; a diag arising from the mid-LAD is of relatively small caliber and has approx 60% ostial and proximal stenosis. Ramus Intermedius: mild, diffuse disease. Left circumflex coronary artery: 40-50% mid-vessel stenosis, first OM chronically occluded (unchanged fro m past studies). Right coronary artery: dominant, patent stents in the distal RCA and PDA. Stable CAD, compared to previous diagnostic and interventional study of Feb 2022 2. LVEDP 16 mmHg 3. LVEF 60% PLAN Based on the results of this study, continuing medical therapy and outpatient f/u appear appropriate. Discussed with Mr. Kidd and his family. EDDIE PATEL MD FACP FAC CCDS Sep 16, 2022 16:30
--- NOTE | 2022-09-16 16:33 | Discharge Inst-Cardiology ---
Discharge Inst-Cardiac Discharge Medications Continued Medications: Albuterol Sulfate (Ventolin Hfa) 1 Puff Puff 2 PUFF IH Q4H PRN for SHORTNESS OF BREATH, EA Aspirin (Aspirin EC) 81 Mg Tablet.dr 81 MG PO HS, TAB Atorvastatin Calcium (Atorvastatin Calcium) 80 Mg Tablet 80 MG PO HS, TAB Budesonide/Formoterol Fumarate (Symbicort 80-4.5 Mcg Inhaler) 80 Mcg-4.5 Mcg/Actuation Hfa.aer.ad 1 PUFF IH DAILY, EA Buspirone HCl (Buspirone HCl) 10 Mg Tablet 10 MG PO BID, TAB Buspirone HCl (Buspirone HCl) 10 Mg Tablet 10 MG PO BID, TAB Carvedilol (Carvedilol) 12.5 Mg Tablet 12.5 MG PO BID, TAB Cetirizine HCl (Cetirizine HCl) 10 Mg Tablet 10 MG PO HS, TAB Clopidogrel Bisulfate (Clopidogrel) 75 Mg Tablet 75 MG PO DAILY, TAB Cyclobenzaprine HCl (Cyclobenzaprine HCl) 10 Mg Tablet 10 MG PO TID PRN for SPASMS, TAB Lisinopril (Lisinopril) 2.5 Mg Tablet 2.5 MG PO DAILY, TAB Melatonin (Melatonin) 5 Mg Tab.rapdis 5 MG PO HS, TAB Meloxicam (Meloxicam) 15 Mg Tablet 15 MG PO DAILY, TAB Montelukast Sodium (Montelukast Sodium) 10 Mg Tablet 10 MG PO DAILY, TAB Nicotine (Nicotine Patch) 21 Mg/24 Hour Patch.td24 21 MG TD DAILY, PATCH Nitroglycerin (Nitroglycerin) 0.4 Mg Tab.subl 0.4 MG SL UD PRN for CHEST PAIN, TAB Nitroglycerin (Nitroglycerin 0.2mg/HR Patch) 0.2 Mg/Hour Patch.td24 1 EACH TD DAILY, PATCH APPLY PATCH DAILY AND REMOVE AFTER 12 HOURS Pantoprazole Sodium (Protonix) 40 Mg Tablet.dr 40 MG PO DAILY, TAB Ranolazine (Ranolazine ER) 1,000 Mg Tab.er.12h 1000 MG PO BID, TAB EDDIE PATEL MD [facility] Sep 16, 2022 16:33
--- NOTE | 2022-09-16 16:33 | Discharge Inst-Post CATH ---
Discharge Inst-CATH/EP Post Cardiac Cath/EP D/C Inst Follow Up/Plan F/u with Dr Moore in 3 weeks ACTIVITY * Go Home directly and rest. * Limit activity of the leg (or wrist if it was used) for 7 days including aerobics, swimming, jogging, bicycling, etc. * Restrict stair-climbing for 7 days if possible, if not, climb up with your no n-cath leg, then bring together on the same step. * Avoid lifting, pushing, pulling or excessive movement of the affected ext remity for 7 days. * Customary sexual activity may be resumed after 2 days-use caution not to use a position that strains or causes pain to the affected extremity. * No driving for 24 hours. * NO SMOKING. * Avoid straining for bowel movements for 7 days. * Gentle walking on level ground is allowed. * Returning to work will depend on the type of procedure and the results. Your doctor will discuss this with you. CALL YOUR DOCTOR FOR ANY OF THE FOLLOWING: *If bleeding from the puncture site occurs- Apply gentle pressure to site with clean cloth and call your doctor or EMS. * If a knot or lump forms under the skin, increases in size, or causes pain. * If bruising appears to be worsening or moving further down your leg instead of disappearing. * Temperature above 101 F. CARE OF YOUR GROIN INCISION; * Bruising or purple discoloration of the skin near the puncture site is common. * You may shower only, no bathtub bathing for 5 days. Be careful to avoid slipping as your leg may feel stiff. * If a closure device was used on your femoral artery, please see the attached guide regarding care of the device and your leg. * Leave dressing on FOR 24 hours. CARE OF YOUR WRIST INCISION; * Bruising or purple discoloration of the skin near the puncture site is common. * You may shower. * DO NOT submerge wrist. * Leave dressing on FOR 24 hours. EDDIE MOORE MD [facility] Sep 16, 2022 16:33
== END 2022-09-16 19:03 | disposition home or self-care (01) ==
LOC: CATH 12:39 → ICU 16:41 → CATH 19:03
PROVIDERS: ATTEND Internal Medicine Cardiovascular Disease
DX: I25.10 Atherosclerotic heart disease of native coronary artery without angina pectoris (principal); I10 Essential (primary) hypertension; J44.9 Chronic obstructive pulmonary disease, unspecified; I25.118 Atherosclerotic heart disease of native coronary artery with other forms of angina pectoris; E78.2 Mixed hyperlipidemia; E66.9 Obesity, unspecified; Z68.28 Body mass index [BMI] 28.0-28.9, adult; Z87.891 Personal history of nicotine dependence
CPT/HCPCS: 36415; 80053; 80061; 85027; 85610; 85730; 87081; 93005; 93458